=== PATIENT | male | born 1960 | race Caucasian/White ===

== ENCOUNTER 2017-08-05 08:31 | Emergency (ER) | payer BC ==
[2017-08-05] MEDS ORDERED: Ketorolac INJ* 30 MG/ML 1 ML VIAL IV PUSH ONE (09:16)
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
[2017-08-05 09:56] LABS: Hematocrit 42 % (42-52); Hemoglobin 14.2 g/dl (14.0-18.0); Mean Corpuscular HGB Conc 34 g/dl (31-36); Mean Corpuscular Hemoglobin 30 pg (27-31); Mean Corpuscular Volume 89 fL (80-94); Mean Platelet Volume 8 um3 (7.4-10.4); Red Blood Count 4.68 10^6/ul (4.0-5.4); Red Cell Distribution Width 13 % (10.5-15); White Blood Count 6.6 10^3/ul (3.5-10.8)
--- NOTE | 2017-08-05 09:57 | RAD ---
INDICATION: RIGHT greater than LEFT back pain radiating to the groin/testicle. Question renal stone and lumbar pathology. COMPARISON: September 12, 2014 CT. TECHNIQUE: Multidetector CT images were obtained from the lung bases to the ischial tuberosities. Evaluation of the viscera is limited without IV contrast. Multiplanar reformation. REPORT: Minimal subsegmental atelectasis at the medial basal segment of the RIGHT lower lobe due to thoracic spine osteophytes. The liver, gallbladder, pancreas, and spleen are unremarkable. Negative for CT abnormality of the upper GI, small bowel, medially extending appendix, or colon. Negative for ascites, or free air. Small fat-containing indirect RIGHT inguinal hernia is partially visualized extending outside the jxoqq-xj-ytbn caudally at the scrotum. At the caudal margin of the [id number]-vl-yygc the hernia measures up to 3.3 x 2.8 cm orthogonal diameter increased from 1.7 x 2.5 cm previously. No inflammatory change evident within the visualized portion of the hernia. No abnormality of the unenhanced kidneys, ureters, or moderately distended urinary bladder. Negative for urolithiasis or hydronephrosis. Phleboliths noted adjacent to the unremarkable distal ureters. Grossly symmetric seminal vesicles. Negative for lymphadenopathy. Normal diameter abdominal aorta and iliac arteries. Physiologic distention of the IVC. Negative for fracture. Chronic finding of approximate 2 cm osseous hemangioma at the L2 vertebral body. No suspicious focal osseous lesions evident. Multilevel mild degenerative spondylosis and facet joint osteoarthritis. No significant central canal stenosis evident at any level. At L3-L4 and L4-L5 degenerative spondylosis and facet joint osteoarthritis results in mild bilateral foraminal stenosis without gross change compared with the 2014 exam. IMPRESSION: 1. Small fat-containing indirect RIGHT inguinal hernia is partially visualized extending outside the afzne-tj-lpqk caudally at the scrotum. At the caudal margin of the zurbm-wn-dqea the hernia measures up to 3.3 x 2.8 cm orthogonal diameter increased from 1.7 x 2.5 cm previously. No inflammatory change evident within the visualized portion of the hernia. 2. Negative for urolithiasis or obstructive uropathy. 3. Mild lumbar sacral spine degenerative spondylosis and facet joint osteoarthritis with suggestion of unchanged mild bilateral foraminal stenosis at L3-L4 and L4-L5. MRI provides the most accurate assessment of degree of spinal stenosis.
[2017-08-05 10:12] LABS: Albumin 3.9 g/dL (3.2-5.2); BUN/Creatinine Ratio 15.6 (8-20); C Reactive Protein 6.89 mg/L (< 5.00); Calcium 9.3 mg/dL (8.6-10.3); EGFR African American 112.3 (>60); EGFR Non-African American 87.3 (>60); Globulin 2.9 g/dL (2-4); Potassium 3.9 mmol/L (3.5-5.0); Total Bilirubin 0.6 mg/dL (0.2-1.0); Total Protein 6.8 g/dL (6.4-8.9)
[2017-08-05 10:40] LABS: Urine Bilirubin Negative (Negative); Urine Glucose Negative (Negative); Urine Nitrite Negative (Negative)
[2017-08-05 12:19] VITALS: BP 178/102
== END 2017-08-05 12:19 | disposition home or self-care (01) ==
LOC: ED 08:31
DX: M46.96 Unspecified inflammatory spondylopathy, lumbar region (principal); M54.16 Radiculopathy, lumbar region; K40.90 Unilateral inguinal hernia, without obstruction or gangrene, not specified as recurrent; Z87.891 Personal history of nicotine dependence; I10 Essential (primary) hypertension
CPT/HCPCS: 36415; 74176; 80053; 81003; 83605; 83690; 85025; 86140; 96374; 99282; J1885

== ENCOUNTER 2017-09-10 17:13 | Emergency (ER) | payer BC ==
[2017-09-10] MEDS ORDERED: Albuterol/Ipratropium NEB.SOL* Albuterol 2.5 MG/Ipratropium 0.5 MG 3 ML INH ONE (17:28)
[2017-09-10] MEDS ORDERED: Albuterol/Ipratropium NEB.SOL* Albuterol 2.5 MG/Ipratropium 0.5 MG 3 ML ONE (17:29)
[2017-09-10 17:58] VITALS: BP 160/100
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
== END 2017-09-10 18:15 | disposition home or self-care (01) ==
LOC: UCEAST 17:13
DX: J40 Bronchitis, not specified as acute or chronic (principal); J98.01 Acute bronchospasm; I10 Essential (primary) hypertension; Z88.8 Allergy status to other drugs, medicaments and biological substances; Z91.018 Allergy to other foods; Z91.048 Other nonmedicinal substance allergy status; Z87.891 Personal history of nicotine dependence
CPT/HCPCS: 99212; A9270-GY; G0463

== ENCOUNTER 2018-06-12 12:26 | Emergency (ER) | payer BC ==
[2018-06-12 12:39] VITALS: BP 153/90
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
== END 2018-06-12 14:00 | disposition home or self-care (01) ==
LOC: UCEAST 12:26
DX: J02.0 Streptococcal pharyngitis (principal); E78.5 Hyperlipidemia, unspecified; I10 Essential (primary) hypertension; I48.91 Unspecified atrial fibrillation; Z79.01 Long term (current) use of anticoagulants; Z88.8 Allergy status to other drugs, medicaments and biological substances; Z87.891 Personal history of nicotine dependence
CPT/HCPCS: 87651; 99212; G0463

== ENCOUNTER 2018-10-14 16:58 | Emergency (ER) | payer BC ==
[2018-10-14 17:20] VITALS: BP 145/82
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
== END 2018-10-14 18:45 | disposition home or self-care (01) ==
LOC: UCEAST 16:58
DX: J40 Bronchitis, not specified as acute or chronic (principal); Z88.8 Allergy status to other drugs, medicaments and biological substances; Z87.891 Personal history of nicotine dependence
CPT/HCPCS: 99212; G0463

== ENCOUNTER 2019-02-14 06:21 | Emergency (ER) | payer BC ==
[2019-02-14] MEDS ORDERED: Ondansetron ODT TAB* 4 MG SL ONE (06:36)
[2019-02-14] MEDS ORDERED: NS 0.9% 1000 ML** 1,000 ML IV ONE (07:05)
[2019-02-14] MEDS ORDERED: Famotidine IV* 10 MG/ML 2 ML (20 mg) IV SLOW PU ONE (07:06)
[2019-02-14 07:07] LABS: ABS Basophils 0.1 10^3/ul (0-0.2); ABS Eosinophils 0.3 10^3/ul (0-0.6); ABS Lymphocytes 1.8 10^3/ul (1.0-4.8); ABS Monocytes 0.7 10^3/ul (0-0.8); Eosinophil % 2.2 %; Hematocrit 41 % (42-52); Hemoglobin 13.8 g/dL (14.0-18.0); Lymphocyte % 13.2 %; Mean Corpuscular HGB Conc 34 g/dL (31-36); Mean Corpuscular Hemoglobin 30 pg (27-31); Mean Corpuscular Volume 88 fL (80-94); Mean Platelet Volume 7.6 fL (7.4-10.4); Platelet Count 235 10^3/uL (150-450); Red Blood Count 4.64 10^6 /uL (4.18-5.48); Red Cell Distribution Width 13 % (10.5-15); White Blood Count 13.9 10^3/uL (3.5-10.8)
[2019-02-14 07:18] LABS: INR 0.95 (0.82-1.09)
[2019-02-14 07:19] LABS: Albumin 4.1 g/dL (3.2-5.2); Albumin/Globulin Ratio 1.5 (1-3); BUN/Creatinine Ratio 19.1 (8-20); Calcium 8.9 mg/dL (8.6-10.3); EGFR African American 106.2 (>60); EGFR Non-African American 87.8 (>60); Globulin 2.8 g/dL (2-4); Potassium 3.7 mmol/L (3.5-5.0); Total Bilirubin 0.3 mg/dL (0.2-1.0); Total Protein 6.9 g/dL (6.4-8.9)
[2019-02-14 07:20] LABS: Troponin I 0.01 ng/mL (<0.04)
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
[2019-02-14] MEDS ORDERED: Morphine 4 MG/ML VIAL (1 ml) 4 MG/ML VIAL IV ONE (09:11)
[2019-02-14 10:38] VITALS: BP 142/57
== END 2019-02-14 10:37 | disposition home or self-care (01) ==
LOC: ED 06:21
DX: R11.2 Nausea with vomiting, unspecified (principal); R19.7 Diarrhea, unspecified; R10.11 Right upper quadrant pain; R10.12 Left upper quadrant pain; R00.8 Other abnormalities of heart beat; I10 Essential (primary) hypertension; Z91.018 Allergy to other foods; Z88.8 Allergy status to other drugs, medicaments and biological substances; Z91.09 Other allergy status, other than to drugs and biological substances; Z87.891 Personal history of nicotine dependence
CPT/HCPCS: 36415; 80053; 83605; 83735; 84484; 85025; 85610; 93005; 96361; 96374; 96375; 99283; A9270-GY; J2270

== ENCOUNTER 2019-02-15 19:52 | Inpatient (IN) | payer BC ==
[2019-02-15 23:59] LABS: ABS Basophils 0.1 10^3/ul (0-0.2); ABS Eosinophils 0.1 10^3/ul (0-0.6); ABS Lymphocytes 0.4 10^3/ul (1.0-4.8); ABS Monocytes 0.7 10^3/ul (0-0.8); ABS Neutrophils 15.4 10^3/ul (1.5-7.7); Eosinophil % 0.5 %; Hematocrit 41 % (42-52); Hemoglobin 13.8 g/dL (14.0-18.0); Lymphocyte % 2.7 %; Mean Corpuscular HGB Conc 34 g/dL (31-36); Mean Corpuscular Hemoglobin 30 pg (27-31); Mean Corpuscular Volume 89 fL (80-94); Platelet Count 149 10^3/uL (150-450); Red Cell Distribution Width 14 % (10.5-15); White Blood Count 16.6 10^3/uL (3.5-10.8)
[2019-02-16 00:15] LABS: Albumin 3.8 g/dL (3.2-5.2); Albumin/Globulin Ratio 1.3 (1-3); Calcium 9.2 mg/dL (8.6-10.3); EGFR African American 32.7 (>60); Potassium 3.8 mmol/L (3.5-5.0); Total Protein 6.8 g/dL (6.4-8.9)
[2019-02-16] MEDS ORDERED: Ondansetron INJ* 2 MG/ML VIAL IV ONE (00:27)
[2019-02-16] MEDS ORDERED: Morphine 4 MG/ML VIAL (1 ml) 4 MG/ML VIAL IV ONE (00:27)
[2019-02-16] MEDS ORDERED: NS 0.9% 1000 ML** 1,000 ML IV ONE ×2 (00:27→01:36)
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
[2019-02-16] MEDS ORDERED: oxyCODONE TAB* 5 MG TAB PO ONE (03:58)
[2019-02-16] MEDS ORDERED: Piperacillin/Tazobac ADVAN(*) 3.375 GM in NS 0.9% 100 ML* 100 ML IVPB ONE (04:11)
[2019-02-16] MEDS ORDERED: NS 0.9% 1000 ML** 3,000 ML IV ONE (04:30)
[2019-02-16 05:14] LABS: Activated Partial Thrombo Time 36.9 seconds (26.0-38.0); INR 1.46 (0.82-1.09)
[2019-02-16 05:42] LABS: BUN/Creatinine Ratio 14.2 (8-20); Calcium 8.4 mg/dL (8.6-10.3); EGFR African American 32.7 (>60); Magnesium 1.8 mg/dL (1.9-2.7); Potassium 3.6 mmol/L (3.5-5.0)
[2019-02-16] MEDS ORDERED: NS 0.9% 1000 ML** 1,000 ML IV SCH (06:30)
[2019-02-16] MEDS ORDERED: Ondansetron INJ* 2 MG/ML VIAL IV PRN (06:50)
--- NOTE | 2019-02-16 07:52 | ED ---
Progress - Progress Note Progress Note: The patient is a sign-out from JACKLYN Li, to Dr. Payam Zepeda MD, at shift change at [address] Abd/Pel impression: Acute appendicitis, possible perforation. Inflammatory changes in the right lower quadrant. Dilated appendix which has air in the lumen. A small amount of free air is seen next to the appendix. Associated inflammatory changes. I spoke with Dr. Kincaid at 0430 concerning surgical consult for the patient. I spoke with Dr. Arias at 0445 ; she accepts the patient for admission at this time. He is diagnosed with appendicitis, and he agrees to admission at this time. - Results/Orders Results/Orders: CT Abd/Pel: Acute appendicitis, possible perforation. Inflammatory changes in the right lower quadrant. Dilated appendix which has air in the lumen. A small amount of free air is seen next to the appendix. Associated inflammatory changes. ED physician has reviewed this radiology report. Re-Evaluation - Re-Evaluation First Eval Re-Evaluation Time: 04:45 Comment: I spoke with the patient concerning CT results and need for admission for surgery. Course/Dx - Diagnoses Provider Diagnoses: Acute appendicitis Discharge - Sign-Out/Discharge Documenting (check all that apply): Patient Departure - Patient is accepted for admission., Receiving Sign-Out Receiving patient FROM: Matt Cortes - Patient is a sign-out from Matt Cortes pending CT results. Patient Received Moderate/Deep Sedation with Procedure: No - Discharge Plan Condition: Stable Disposition: ADMITTED TO [facility] - Billing Disposition and Condition Condition: STABLE Disposition: Admitted to [facility] - Attestation Statements Document Initiated by Lucero: Yes Documenting Scribe: Billie Zheng Provider For Whom Lucero is Documenting (Include Credential): Dr. Payam Zepeda MD Scribe Attestation: Billie Castro, scribed for Dr. Payam Zepeda MD on 02/17/19 at 0456. Scribe Documentation Reviewed: Yes Provider Attestation: The documentation as recorded by the Billie shepherd accurately reflects the service I personally performed and the decisions made by me, Dr. Payam Zepeda MD Status of Scribe Document: Viewed
--- NOTE | 2019-02-16 08:40 | CONS ---
CC: Lm Lees MD CONSULTATION REPORT: DATE OF CONSULT: 02/16/19 TIME OF EVALUATION: 0500 REQUESTING PHYSICIAN FOR CONSULTATION: Joshua Kincaid MD REASON FOR EVALUATION: Management of comorbidities and new onset of acute kidney injury. HISTORY OF PRESENT ILLNESS: This is a 58-year-old male with past medical history of atrial fibrillation, on anticoagulation, hypertension, hyperlipidemia , who presented to the emergency room for the second time in 2 days with worsening abdominal pain. The patient states his abdominal pain started in the epigastric region in the house calls nurse of 02/13/19. He began having nausea, vomiting, diarrhea. He came in to the emergency room on 02/14/19. They did labs and diagnosed him with gastroenteritis and sent him home with Zofran. That evening, on the 02/14/19, he developed a fever, continued to have nausea, vomiting, diarrhea, and his abdominal pain got worse and became more localized in the right lower quadrant. He has had a decrease in appetite and intake. He did start taking ibuprofen 800 mg every 4 hours while awake. He last took his Eliquis dose of 10 mg at 10 a.m. on 02/15/19 as he was worried that he would not be compliant taking it twice a day and his primary told him it was okay to take both tabs in the morning. The patient denies any urinary symptoms. No urinary retention. No frequency. No chest pain. No shortness of breath. No cardiac history. Able to ambulate the stairs without any issues, otherwise review of systems is negative. In the emergency room, the patient had labs and imaging. Dr. Kincaid was contacted for patient's findings on CAT scan for acute appendicitis. He was also noted to have acute kidney injury and we were requested to evaluate patient for his acute kidney injury and management of comorbidities. In the emergency room, the patient has received 4 mg of Zofran, 4 mg of morphine, oxycodone 10 mg, started on Zosyn. He has received 2 L of normal saline and he has gotten additional 3 more L of normal saline. PAST MEDICAL HISTORY: 1. Hypertension. 2. Atrial fibrillation, on anticoagulation. 3. Hyperlipidemia. 4. History of obstructive sleep apnea, intolerant of CPAP. MEDICATIONS: 1. Eliquis 10 mg p.o. daily. Last took on 02/15/19 at 10 a.m. 2. Metoprolol 25 mg p.o. daily in the morning. 3. Lisinopril patient states he takes 12.5 mg p.o. daily. 4. Atorvastatin 20 mg daily. ALLERGIES: PREDNISONE, BLACK OLIVES, OIL GREASE. FAMILY HISTORY: Mother at age 84 from bladder cancer. Father from an HI at age 73. SOCIAL HISTORY: The patient lives at home with his who is his healthcare proxy. He quit smoking in 1981, smoked 2 packs per day for 7 years. Occasional alcohol use and no illicit drug use. Code status: Full code. REVIEW OF SYSTEMS: A 14-point review of systems as mentioned in the HPI, otherwise negative. PHYSICAL EXAM: Vitals: T-max is 100, pulse rate 76, respiratory rate 18, oxygen saturation is 97% on room air, blood pressure is 102/51. General: In no acute distress. Resting comfortably with his at the bedside. HEENT: Head normocephalic. Pupils equal and reactive, anicteric. Oropharynx: Mucous membranes moist. Neck: Supple. No lymphadenopathy. Cardiac: Sinus rhythm with ectopic beats. A soft systolic murmur heard throughout. Respiratory: Diminished breath sounds. No wheezing, rhonchi, or rales. Abdomen: Morbidly obese, hypoactive bowel sounds. Soft, tenderness in the right lower quadrant with guarding. Extremities: No clubbing, cyanosis, or edema. +1 DPs. Neurologic: Alert and oriented x3. No gross focal neurologic deficits. DIAGNOSTIC STUDIES/LAB DATA: White count 16.6, hemoglobin 13.8, hematocrit 41, platelets 149. Sodium 129, potassium 3.8, chloride 97, bicarb 21. BUN 13, creatinine 2.74. RADIOGRAPHIC DATA: Acute appendicitis, possible perforation, inflammatory changes in the right lower quadrant, dilated appendix a lumen of small amount of free air is seen next to appendix. ASSESSMENT AND PLAN: This is a 58-year-old male with past medical history of atrial fibrillation, on anticoagulation, who presents to the emergency room for the second time with worsening, nausea, vomiting, diarrhea, right lower quadrant pain, and fever, found to have acute appendicitis with possible perforation. 1. Acute appendicitis, possible perforation. The patient is being admitted by Dr. Kincaid, management per Dr. Kincaid and Surgery Service. 2. Acute kidney injury Assessment Suspect this is multifactorial, most likely prerenal azotemia in the setting of decreased p.o. over the past several days. He has also been taking ibuprofen and he is also on lisinopril. Plan: We will check a bladder scan and make sure this is not related to any postobstructive renal disease and hold his lisinopril and ibuprofen. Continue with aggressive fluid resuscitation. Check urinalysis and we will repeat his labs now as he has already received 2 L. If no significant improvement, we will recommend kidney and bladder ultrasound. Atrial Fibrillation Assessment: on Eliquis. The patient appears to be rate controlled. We will get a baseline EKG for preop protocol. If the surgery is considered high bleeding risk, the patient should hold his Eliquis for 3 days prior to procedure. However, his creatinine clearance is now 30 and his metabolism of Eliquis is now even longer and may require a longer duration prior to proceeding with surgery if his renal function does not improve. Will continue to hold Eliquis. 4. Hypertension. Continue him on metoprolol. As mentioned, hold his lisinopril. 5. Hyperlipidemia. Continue his atorvastatin. 6. FEN. Per Surgery. 7. DVT prophylaxis. Per Surgery. Thank you for this consultation. We will follow along with you. PATIENT TIME: Greater than 40 minutes spent doing the history and physical, more than half the time spent in direct patient contact. [id number]/[facility] #: [id number] PRISCILLA
[2019-02-16] MEDS: NS 0.9% 1000 ML** 1,000 ML IV SCH ×2 (08:53→17:28)
[2019-02-16] MEDS: Piperacillin/Tazobac ADVAN(*) 3.375 GM in NS 0.9% 100 ML* 100 ML IVPB SCH ×2 (08:54→17:25)
[2019-02-16] MEDS: Metoprolol Succinate XL TAB* 25 MG PO SCH (08:54)
[2019-02-16] MEDS: Morphine 4 MG/ML VIAL (1 ml) 4 MG/ML VIAL IV PRN ×4 (08:56→22:05)
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
--- NOTE | 2019-02-16 10:10 | PN ---
Progress Note - Progress Note Date of Service: 02/16/19 SOAP: Subjective: Reports pain is the same. Some effect from morphine. No flatus/N/V. Objective: Vital Signs Temp 96.1 F 02/16/19 08:00 Pulse 87 02/16/19 08:00 Resp 18 02/16/19 08:56 BP 122/73 02/16/19 08:00 Pulse Ox 99 02/16/19 08:00 Gen: obese male; NAD Abd: scars infraumbilical; soft; localized tenderness to percussion RLQ. Intake & Output 02/15/19 02/16/19 02/16/19 18:59 06:59 18:59 Intake Total 2100 Balance 2100 Weight 300 lb Intake: IV Fluids 1999 IVPB 100 Laboratory Results - last 24 hr 02/15/19 02/15/19 02/16/19 23:50 23:50 04:31 WBC 16.6 H RBC 4.60 Hgb 13.8 L Hct 41 L MCV 89 MCH 30 MCHC 34 RDW 14 Plt Count 149 L MPV 8.0 Neut % (Auto) 92.3 Lymph % (Auto) 2.7 [place] % (Auto) 4.0 Eos % (Auto) 0.5 Baso % (Auto) 0.5 Absolute Neuts (auto) 15.4 H Absolute Lymphs (auto) 0.4 L Absolute Monos (auto) 0.7 Absolute Eos (auto) 0.1 Absolute Basos (auto) 0.1 Absolute Nucleated RBC 0.0 Nucleated RBC % 0.0 INR (Anticoag Therapy) 1.46 H APTT 36.9 Sodium 129 L Potassium 3.8 Chloride 97 L Carbon Dioxide 21 L Anion Gap 11 BUN 32 H Creatinine 2.47 H Est GFR ( Amer) 32.7 Est GFR (Non-Af Amer) 27.0 BUN/Creatinine Ratio 13.0 Glucose 93 Lactic Acid Calcium 9.2 Magnesium Total Bilirubin 1.00 AST 23 ALT 15 Alkaline Phosphatase 59 Total Protein 6.8 Albumin 3.8 Globulin 3.0 Albumin/Globulin Ratio 1.3 02/16/19 02/16/19 04:37 04:37 WBC RBC Hgb Hct MCV MCH MCHC RDW Plt Count MPV Neut % (Auto) Lymph % (Auto) [place] % (Auto) Eos % (Auto) Baso % (Auto) Absolute Neuts (auto) Absolute Lymphs (auto) Absolute Monos (auto) Absolute Eos (auto) Absolute Basos (auto) Absolute Nucleated RBC Nucleated RBC % INR (Anticoag Therapy) APTT Sodium 130 L Potassium 3.6 Chloride 99 L Carbon Dioxide 22 Anion Gap 9 BUN 35 H Creatinine 2.47 H Est GFR ( Amer) 32.7 Est GFR (Non-Af Amer) 27.0 BUN/Creatinine Ratio 14.2 Glucose 91 Lactic Acid 1.1 Calcium 8.4 L Magnesium 1.8 L Total Bilirubin AST ALT Alkaline Phosphatase Total Protein Albumin Globulin Albumin/Globulin Ratio Assessment: Perforated appendicitis in pt on anticoagulation with ARF and severe obesity. He does not appear septic and, given risk of emergent surgery, non operative management seems most reasonable at present. Plan: -Serial exams. -IV abx. -Keep NPO. -IV hydration. -Cont to hold Eliquis. -assuming he improves, will consider repeat imaging and drainage of abscess as appropriate. -If he fails to improve or worsens, then surgery will be necessary. -d/w patient and .
--- NOTE | 2019-02-16 11:00 | PN ---
Subjective Date of Service: 02/16/19 Interval History: Brief update as patient admitted earlier this morning. Abd pain is overall unchanged, nausea improved. Denies vomiting, fever/chills, chest pain, difficulty breathing, difficulty passing urine, low back pain. Objective Active Medications: Acetaminophen (Tylenol Tab*) 650 mg PO Q6H PRN PRN Reason: FEVER Atorvastatin Calcium (Lipitor*) 20 mg PO 2100 [facility] Sodium Chloride (Ns 0.9% 1000 Ml) 1,000 mls @ 175 mls/hr IV PER RATE [facility] Last Admin: 02/16/19 08:53 Dose: 175 mls/hr Piperacillin Sod/Tazobactam (Sod 3.375 gm/ Sodium Chloride) 100 mls @ 25 mls/ hr IVPB Q8H [facility] Last Admin: 02/16/19 08:54 Dose: 25 mls/hr Metoprolol Succinate (Toprol Xl Tab*) 25 mg PO DAILY [facility] Last Admin: 02/16/19 08:54 Dose: 25 mg Morphine Sulfate (Morphine 4 Mg/Ml Vial (1 Ml)) 4 mg IV Q2H PRN PRN Reason: PAIN Last Admin: 02/16/19 08:56 Dose: 4 mg Ondansetron HCl (Zofran Inj*) 4 mg IV Q6H PRN PRN Reason: NAUSEA Vital Signs - 8 hr 02/16/19 02/16/19 02/16/19 04:21 07:01 07:51 Temperature 100 F 100.4 F 98.9 F Pulse Rate 76 83 87 Respiratory 18 18 18 Rate Blood Pressure 102/51 106/57 122/73 (mmHg) O2 Sat by Pulse 97 95 96 Oximetry 02/16/19 02/16/19 08:00 08:56 Temperature 96.1 F Pulse Rate 87 Respiratory 18 18 Rate Blood Pressure 122/73 (mmHg) O2 Sat by Pulse 99 Oximetry Oxygen Devices in Use Now: None Result Diagrams: 02/15/19 23:50 02/16/19 04:37 Additional Lab and Data: Lab Results 02/15/19 02/15/19 Range/Units 23:50 23:50 WBC 16.6 H (3.5-10.8) 10^3/uL RBC 4.60 (4.18-5.48) 10^6 /uL Hgb 13.8 L (14.0-18.0) g/dL Hct 41 L (42-52) % MCV 89 (80-94) fL MCH 30 (27-31) pg MCHC 34 (31-36) g/dL RDW 14 (10.5-15) % Plt Count 149 L (150-450) 10^3/uL MPV 8.0 (7.4-10.4) fL Neut % (Auto) 92.3 % Lymph % (Auto) 2.7 % [place] % (Auto) 4.0 % Eos % (Auto) 0.5 % Baso % (Auto) 0.5 % Absolute Neuts (auto) 15.4 H (1.5-7.7) 10^3/ul Absolute Lymphs (auto) 0.4 L (1.0-4.8) 10^3/ul Absolute Monos (auto) 0.7 (0-0.8) 10^3/ul Absolute Eos (auto) 0.1 (0-0.6) 10^3/ul Absolute Basos (auto) 0.1 (0-0.2) 10^3/ul Absolute Nucleated RBC 0.0 10^3/ul Nucleated RBC % 0.0 Sodium 129 L (135-145) mmol/L Potassium 3.8 (3.5-5.0) mmol/L Chloride 97 L (101-111) mmol/L Carbon Dioxide 21 L (22-32) mmol/L Anion Gap 11 (2-11) mmol/L BUN 32 H (6-24) mg/dL Creatinine 2.47 H (0.67-1.17) mg/dL Est GFR ( Amer) 32.7 (>60) Est GFR (Non-Af Amer) 27.0 (>60) BUN/Creatinine Ratio 13.0 (8-20) Glucose 93 (70-100) mg/dL Calcium 9.2 (8.6-10.3) mg/dL Total Bilirubin 1.00 (0.2-1.0) mg/dL AST 23 (13-39) U/L ALT 15 (7-52) U/L Alkaline Phosphatase 59 (34-104) U/L Total Protein 6.8 (6.4-8.9) g/dL Albumin 3.8 (3.2-5.2) g/dL Globulin 3.0 (2-4) g/dL Albumin/Globulin Ratio 1.3 (1-3) Assess/Plan/Problems-Billing Assessment:
[2019-02-16] MEDS: Acetaminophen TAB* 325 MG PO PRN (12:42)
[2019-02-16 14:26] LABS: BUN/Creatinine Ratio 15.4 (8-20); EGFR African American 44.8 (>60)
[2019-02-16 15:08] LABS: Potassium 3.7 mmol/L (3.5-5.0)
--- NOTE | 2019-02-16 17:10 | PN ---
Hospitalist Progress Note Date of Service: 02/16/19 Brief update as patient admitted earlier this morning. Abd pain is overall unchanged, nausea improved. Denies vomiting, fever/chills, chest pain, difficulty breathing, difficulty passing urine, low back pain. U/S kidney and bladder without hydronephrosis and no urinary retention. SANJAY is possibly related to ibuprofen use and possibly prerenal in setting of decreased po intake d/t nausea. Need to continue to hold eliquis in case surgery is required. Continue to monitor for worsening of symptoms. Continue zosyn. Continue prn zofran and prn morphine for sxs control. Patient has been overall normotensive. Continue home meds for HTN.
[2019-02-16] MEDS: Atorvastatin* 20 MG TAB PO SCH (22:02)
[2019-02-17] MEDS: Piperacillin/Tazobac ADVAN(*) 3.375 GM in NS 0.9% 100 ML* 100 ML IVPB SCH ×3 (01:09→16:25)
[2019-02-17] MEDS: NS 0.9% 1000 ML** 1,000 ML IV SCH ×4 (01:59→22:30)
[2019-02-17] MEDS: Acetaminophen TAB* 325 MG PO PRN (05:43)
[2019-02-17 08:17] LABS: ABS Eosinophils 0.1 10^3/ul (0-0.6); ABS Lymphocytes 0.5 10^3/ul (1.0-4.8); ABS Monocytes 0.6 10^3/ul (0-0.8); ABS Neutrophils 8.7 10^3/ul (1.5-7.7); Eosinophil % 1.4 %; Hematocrit 36 % (42-52); Hemoglobin 12.1 g/dL (14.0-18.0); Lymphocyte % 5.4 %; Mean Corpuscular HGB Conc 33 g/dL (31-36); Mean Corpuscular Hemoglobin 30 pg (27-31); Mean Corpuscular Volume 91 fL (80-94); Mean Platelet Volume 8.6 fL (7.4-10.4); Platelet Count 131 10^3/uL (150-450); Red Blood Count 4.02 10^6 /uL (4.18-5.48); Red Cell Distribution Width 14 % (10.5-15)
[2019-02-17] MEDS: Morphine 4 MG/ML VIAL (1 ml) 4 MG/ML VIAL IV PRN ×4 (08:20→20:53)
[2019-02-17] MEDS: Metoprolol Succinate XL TAB* 25 MG PO SCH (08:22)
[2019-02-17 08:36] LABS: BUN/Creatinine Ratio 17.9 (8-20); Calcium 8.3 mg/dL (8.6-10.3); EGFR African American 55.6 (>60); EGFR Non-African American 45.9 (>60); Magnesium 2.1 mg/dL (1.9-2.7); Phosphorus 2.9 mg/dL (2.5-5.0); Potassium 3.3 mmol/L (3.5-5.0)
--- NOTE | 2019-02-17 09:50 | PN ---
Progress Note - Progress Note Date of Service: 02/17/19 SOAP: Subjective: Feels a little better but still having some RLQ abd pain Passing flatus and had one small BM yesterday-still loose Hungry and would also like to shower No other complaints Objective: Temp Pulse Resp BP Pulse Ox 98.9 F 73 18 125/57 99 02/17/19 07:42 02/17/19 07:42 02/17/19 08:20 02/17/19 07:42 02/17/19 07:42 Intake & Output 02/15/19 02/16/19 02/17/19 02/18/19 06:59 06:59 06:59 06:59 Intake Total 2100 1100 1100 Output Total 1850 Balance 2100 -750 1100 Weight 300 lb 300 lb Intake: IV Fluids 2000 1100 1100 NS 990 990 Zosyn 110 110 IVPB 100 Oral 0 Output: Urine 1850 Other: Estimated Void Medium Date of Last Bowel 02/17/19 Movement # Bowel Movements 0 Estimated Stool Amount Medium # Voids 1 PEX: Comfortable Lungs are clear Abd is soft and non-distended. Bowel sounds are present and are hyperactive. Localized tenderness RLQ without peritoneal irritation or generalized pain. Ext without edema Laboratory Last Values WBC 10.0 10^3/uL (3.5-10.8) 02/17/19 05:50 RBC 4.02 10^6 /uL (4.18-5.48) L 02/17/19 05:50 Hgb 12.1 g/dL (14.0-18.0) L 02/17/19 05:50 Hct 36 % (42-52) L 02/17/19 05:50 MCV 91 fL (80-94) 02/17/19 05:50 MCH 30 pg (27-31) 02/17/19 05:50 MCHC 33 g/dL (31-36) 02/17/19 05:50 RDW 14 % (10.5-15) 02/17/19 05:50 Plt Count 131 10^3/uL (150-450) L 02/17/19 05:50 MPV 8.6 fL (7.4-10.4) 02/17/19 05:50 Neut % (Auto) 86.9 % 02/17/19 05:50 Lymph % (Auto) 5.4 % 02/17/19 05:50 [place] % (Auto) 6.0 % 02/17/19 05:50 Eos % (Auto) 1.4 % 02/17/19 05:50 Baso % (Auto) 0.3 % 02/17/19 05:50 Absolute Neuts (auto) 8.7 10^3/ul (1.5-7.7) H 02/17/19 05:50 Absolute Lymphs (auto) 0.5 10^3/ul (1.0-4.8) L 02/17/19 05:50 Absolute Monos (auto) 0.6 10^3/ul (0-0.8) 02/17/19 05:50 Absolute Eos (auto) 0.1 10^3/ul (0-0.6) 02/17/19 05:50 Absolute Basos (auto) 0.0 10^3/ul (0-0.2) 02/17/19 05:50 Absolute Nucleated RBC 0.0 10^3/ul 02/17/19 05:50 Nucleated RBC % 0.0 02/17/19 05:50 INR (Anticoag Therapy) 1.46 (0.82-1.09) H 02/16/19 04:31 APTT 36.9 seconds (26.0-38.0) 02/16/19 04:31 Sodium 135 mmol/L (135-145) 02/17/19 05:50 Potassium 3.3 mmol/L (3.5-5.0) L 02/17/19 05:50 Chloride 104 mmol/L (101-111) 02/17/19 05:50 Carbon Dioxide 20 mmol/L (22-32) L 02/17/19 05:50 Anion Gap 11 mmol/L (2-11) 02/17/19 05:50 BUN 28 mg/dL (6-24) H 02/17/19 05:50 Creatinine 1.56 mg/dL (0.67-1.17) H 02/17/19 05:50 Est GFR ( Amer) 55.6 (>60) 02/17/19 05:50 Est GFR (Non-Af Amer) 45.9 (>60) 02/17/19 05:50 BUN/Creatinine Ratio 17.9 (8-20) 02/17/19 05:50 Glucose 68 mg/dL (70-100) L 02/17/19 05:50 Lactic Acid 1.1 mmol/L (0.5-2.0) 02/16/19 04:37 Calcium 8.3 mg/dL (8.6-10.3) L 02/17/19 05:50 Phosphorus 2.9 mg/dL (2.5-5.0) 02/17/19 05:50 Magnesium 2.1 mg/dL (1.9-2.7) 02/17/19 05:50 Total Bilirubin 1.00 mg/dL (0.2-1.0) 02/15/19 23:50 AST 23 U/L (13-39) 02/15/19 23:50 ALT 15 U/L (7-52) 02/15/19 23:50 Alkaline Phosphatase 59 U/L (34-104) 02/15/19 23:50 Total Protein 6.8 g/dL (6.4-8.9) 02/15/19 23:50 Albumin 3.8 g/dL (3.2-5.2) 02/15/19 23:50 Globulin 3.0 g/dL (2-4) 02/15/19 23:50 Albumin/Globulin Ratio 1.3 (1-3) 02/15/19 23:50 Assessment: Acute appendicitis-normal WBC, no fever and had BM Afib-on Elliquis, now been stopped for 48 hours ARF-improving with hydration Plan: Overall he is improving on IV abx and has no sign of sepsis or peritonitis. Renal function is improving and he has appetite. At this point almost 4 days into process we will continue with non-operative management, hold on any anti- coagulation, and follow. If he worsens or WBC elevates will plan repeat CT scan to rule out abscess and proceed with appropriate management. I would like to hold off on surgery this far into the progression of his appendicitis. I discussed this in detail with patient and his at the bedside this morning and they are aware of our plan. I answered their questions. Will repeat labs in AM and start on sips of clear liquids.
[2019-02-17] MEDS: KCL 20 MEQ/100 ML IVPREMIX* 20 MEQ/100 ML BAG IV SCH ×3 (10:48→15:37)
[2019-02-17 15:33] LABS: Activated Partial Thrombo Time 33.2 seconds (26.0-38.0); INR 1.16 (0.82-1.09)
[2019-02-17] MEDS: Heparin VIAL(*) 5000 UNITS/ML VIAL (FIVE THOUSAND) SUBCUT SCH ×2 (15:35→20:55)
[2019-02-17 15:36] LABS: BUN/Creatinine Ratio 15.6 (8-20); Calcium 8.5 mg/dL (8.6-10.3); EGFR African American 56.4 (>60); EGFR Non-African American 46.6 (>60); Potassium 3.7 mmol/L (3.5-5.0)
--- NOTE | 2019-02-17 15:41 | PN ---
Subjective Date of Service: 02/17/19 Interval History: Patient's nausea is resolved. His abdominal pain continues. Pain is more tolerable after prn pain meds but otherwise is unchanged from admission. Patient denies fever/chills, chest pain, difficulty breathing. Had nonbloody diarrhea this morning. Chronic wound to right medial ankle noted. He states it weeps almost daily. Does not follow with wound clinic. Objective Active Medications: Acetaminophen (Tylenol Tab*) 650 mg PO Q6H PRN PRN Reason: FEVER Last Admin: 02/17/19 05:43 Dose: 650 mg Atorvastatin Calcium (Lipitor*) 20 mg PO 2100 [facility] Last Admin: 02/16/19 22:02 Dose: 20 mg Heparin Sodium (Porcine) (Heparin Vial(*)) 5,000 units SUBCUT Q8HR [facility] Sodium Chloride (Ns 0.9% 1000 Ml) 1,000 mls @ 175 mls/hr IV PER RATE [facility] Last Admin: 02/17/19 08:17 Dose: 175 mls/hr Piperacillin Sod/Tazobactam (Sod 3.375 gm/ Sodium Chloride) 100 mls @ 25 mls/ hr IVPB Q8H [facility] Last Admin: 02/17/19 08:18 Dose: 25 mls/hr Potassium Chloride (Potassium Chloride 20 Meq/100 Ml Ivpremix*) 20 meq in 100 mls @ 50 mls/hr IV Q2H [facility] Stop: 02/17/19 15:59 Last Admin: 02/17/19 12:53 Dose: 50 mls/hr Metoprolol Succinate (Toprol Xl Tab*) 25 mg PO DAILY [facility] Last Admin: 02/17/19 08:22 Dose: 25 mg Morphine Sulfate (Morphine 4 Mg/Ml Vial (1 Ml)) 4 mg IV Q2H PRN PRN Reason: PAIN Last Admin: 02/17/19 12:48 Dose: 4 mg Ondansetron HCl (Zofran Inj*) 4 mg IV Q6H PRN PRN Reason: NAUSEA Vital Signs - 8 hr 02/17/19 02/17/19 02/17/19 07:42 08:00 08:20 Temperature 98.9 F Pulse Rate 73 Respiratory 17 20 18 Rate Blood Pressure 125/57 (mmHg) O2 Sat by Pulse 99 Oximetry 02/17/19 02/17/19 02/17/19 10:00 10:02 11:24 Temperature 98.4 F Pulse Rate 68 Respiratory 18 18 16 Rate Blood Pressure 130/62 (mmHg) O2 Sat by Pulse 95 98 Oximetry 02/17/19 02/17/19 02/17/19 12:00 12:48 12:54 Temperature Pulse Rate Respiratory 20 18 22 Rate Blood Pressure (mmHg) O2 Sat by Pulse 98 94 Oximetry 02/17/19 14:30 Temperature Pulse Rate Respiratory 21 Rate Blood Pressure (mmHg) O2 Sat by Pulse Oximetry Oxygen Devices in Use Now: None Appearance: Obese white male, appears younger than stated age, laying upright in hospital bed appearing in NAD, at bedside Eyes: No Scleral Icterus, PERRLA Ears/Nose/Mouth/Throat: Mucous Membranes Moist Neck: NL Appearance and Movements; NL JVP Respiratory: Symmetrical Chest Expansion and Respiratory Effort, Clear to Auscultation Cardiovascular: NL Sounds; No Murmurs; No JVD, RRR Abdominal: No Hepatosplenomegaly, - - abdomen tender to RLQ and RUQ, no rebound tenderness; normoactive BS x 4 quadrants; neg psoas sign Extremities: No Edema, No Clubbing, Cyanosis, - - chronic darkened pigmentation to regions of medial malleoli bilaterally; small volume of fluid at right medial ankle Neurological: Alert and Oriented x 3, NL Muscle Strength and Tone Result Diagrams: 02/17/19 05:50 02/17/19 15:11 Additional Lab and Data: Lab Results 02/15/19 02/15/19 Range/Units 23:50 23:50 WBC 16.6 H (3.5-10.8) 10^3/uL RBC 4.60 (4.18-5.48) 10^6 /uL Hgb 13.8 L (14.0-18.0) g/dL Hct 41 L (42-52) % MCV 89 (80-94) fL MCH 30 (27-31) pg MCHC 34 (31-36) g/dL RDW 14 (10.5-15) % Plt Count 149 L (150-450) 10^3/uL MPV 8.0 (7.4-10.4) fL Neut % (Auto) 92.3 % Lymph % (Auto) 2.7 % [place]ike % (Auto) 4.0 % Eos % (Auto) 0.5 % Baso % (Auto) 0.5 % Absolute Neuts (auto) 15.4 H (1.5-7.7) 10^3/ul Absolute Lymphs (auto) 0.4 L (1.0-4.8) 10^3/ul Absolute Monos (auto) 0.7 (0-0.8) 10^3/ul Absolute Eos (auto) 0.1 (0-0.6) 10^3/ul Absolute Basos (auto) 0.1 (0-0.2) 10^3/ul Absolute Nucleated RBC 0.0 10^3/ul Nucleated RBC % 0.0 Sodium 129 L (135-145) mmol/L Potassium 3.8 (3.5-5.0) mmol/L Chloride 97 L (101-111) mmol/L Carbon Dioxide 21 L (22-32) mmol/L Anion Gap 11 (2-11) mmol/L BUN 32 H (6-24) mg/dL Creatinine 2.47 H (0.67-1.17) mg/dL Est GFR ( Amer) 32.7 (>60) Est GFR (Non-Af Amer) 27.0 (>60) BUN/Creatinine Ratio 13.0 (8-20) Glucose 93 (70-100) mg/dL Calcium 9.2 (8.6-10.3) mg/dL Total Bilirubin 1.00 (0.2-1.0) mg/dL AST 23 (13-39) U/L ALT 15 (7-52) U/L Alkaline Phosphatase 59 (34-104) U/L Total Protein 6.8 (6.4-8.9) g/dL Albumin 3.8 (3.2-5.2) g/dL Globulin 3.0 (2-4) g/dL Albumin/Globulin Ratio 1.3 (1-3) Assess/Plan/Problems-Billing Assessment: 58 yo white male with PMHx afib (on AC), HTN, HLD, MARZENA (not tolerant to CPAP) presented with chills and abd pain, found to have appendicitis with possible perforation. Hospital medicine consulted for comanagement of chronic medical conditions. - Patient Problems (1) Appendicitis Code(s): K37 - UNSPECIFIED APPENDICITIS SNOMED Code(s): 68693026 Comment: -management per general surgery, currently utilizing medical management; on zosyn -holding eliquis in anticipation of possible surgery, last dose was 02/15/19 in AM -nausea/vomiting resolved, fever resolved, leukocytosis resolved; abdomen pain unchanged from yesterday - continued RLQ pain; no peritoneal signs -continue prn morphine and tylenol -sips of clear liquids per gen surg (2) SANJAY (acute kidney injury) Code(s): N17.9 - ACUTE KIDNEY FAILURE, UNSPECIFIED SNOMED Code(s): 34877876 Comment: -Cr 2.47 at admission, likely prerenal in setting of vomiting and decreased po intake -postrenal unlikely as kidney/bladder US normal -improvement, Cr today 1.56 -continue NS (3) Atrial fibrillation Code(s): I48.91 - UNSPECIFIED ATRIAL FIBRILLATION SNOMED Code(s): 61006046 Comment: -on eliquis at home, currently held for possible surgery -rate controlled, continue metoprolol -given acute illness and possibility of surgery, will not give lovenox bridge (4) Hypertension Code(s): I10 - ESSENTIAL (PRIMARY) HYPERTENSION SNOMED Code(s): 98282016 Comment: -normotensive -continue metoprolol -holding lisinopril/hctz (5) Hypokalemia Code(s): E87.6 - HYPOKALEMIA SNOMED Code(s): 96545271 Comment: -likely due to decreased po intake -replacing with IV KCl, will recheck BMP (6) Chronic wound of extremity Code(s): ETT2574 - SNOMED Code(s): 477334538 Comment: -longstanding chronic wounds to right ankle with bilateral ankle pigmentation changes -pt likely has longstanding peripheral vascular disease due to multiple orthopedic surgeries -would benefit from wound clinic follow up at discharge (7) MARZENA (obstructive sleep apnea) Code(s): G47.33 - OBSTRUCTIVE SLEEP APNEA (ADULT) (PEDIATRIC) SNOMED Code(s): 51270857 Comment: -pt previously CPAP intolerant -discussed importance of CPAP and risk factors of untreated MARZENA -continue overnight O2 and continues pulse ox overnight only (8) DVT prophylaxis Code(s): Z29.9 - ENCOUNTER FOR PROPHYLACTIC MEASURES, UNSPECIFIED SNOMED Code( s): 775956445 Comment: -SCDs -heparin TID (9) Full code status Code(s): Z78.9 - OTHER SPECIFIED HEALTH STATUS SNOMED Code(s): 657377991 Status and Disposition: per gen surg
[2019-02-17] MEDS: Atorvastatin* 20 MG TAB PO SCH (20:56)
[2019-02-18] MEDS: Piperacillin/Tazobac ADVAN(*) 3.375 GM in NS 0.9% 100 ML* 100 ML IVPB SCH ×3 (01:09→17:25)
[2019-02-18] MEDS: Morphine 4 MG/ML VIAL (1 ml) 4 MG/ML VIAL IV PRN ×4 (03:26→20:17)
[2019-02-18] MEDS: NS 0.9% 1000 ML** 1,000 ML IV SCH ×3 (04:01→19:13)
[2019-02-18 05:52] LABS: ABS Eosinophils 0.2 10^3/ul (0-0.6); ABS Monocytes 0.9 10^3/ul (0-0.8); ABS Neutrophils 9.9 10^3/ul (1.5-7.7); Eosinophil % 1.7 %; Hematocrit 36 % (42-52); Hemoglobin 12.1 g/dL (14.0-18.0); Lymphocyte % 8.2 %; Mean Corpuscular HGB Conc 33 g/dL (31-36); Mean Corpuscular Hemoglobin 30 pg (27-31); Mean Corpuscular Volume 89 fL (80-94); Mean Platelet Volume 7.8 fL (7.4-10.4); Platelet Count 154 10^3/uL (150-450); Red Blood Count 4.07 10^6 /uL (4.18-5.48); Red Cell Distribution Width 14 % (10.5-15); White Blood Count 12.1 10^3/uL (3.5-10.8)
[2019-02-18] MEDS: Heparin VIAL(*) 5000 UNITS/ML VIAL (FIVE THOUSAND) SUBCUT SCH ×3 (05:59→21:02)
[2019-02-18 06:10] LABS: BUN/Creatinine Ratio 15.9 (8-20); Calcium 8.4 mg/dL (8.6-10.3); EGFR African American 67.4 (>60); EGFR Non-African American 55.7 (>60); Potassium 3.7 mmol/L (3.5-5.0)
--- NOTE | 2019-02-18 08:09 | PN ---
Progress Note - Progress Note Date of Service: 02/18/19 SOAP: Subjective: Still with about the same RLQ abd pain, no improvement One small loose BM yesterday No N/V, tolerating some clear liquids Objective: Temp Pulse Resp BP Pulse Ox 98.3 F 77 22 176/70 95 02/18/19 07:13 02/18/19 07:13 02/18/19 07:26 02/18/19 07:13 02/18/19 07:13 Intake & Output 02/16/19 02/17/19 02/18/19 02/19/19 06:59 06:59 06:59 06:59 Intake Total 2100 1100 5239 Output Total 1850 1600 Balance 2100 -750 3639 Weight 300 lb 300 lb Intake: IV Fluids 2000 1100 3609 KCL 279 NS 990 3120 Zosyn 110 210 IVPB 100 110 Zosyn 110 Oral 0 1520 Output: Urine 1850 1600 Other: Estimated Void Medium Date of Last Bowel 02/17/19 Movement # Bowel Movements 0 Estimated Stool Amount Medium # Voids 1 PEX: Comfortable Lungs are clear Abd is soft and slightly distended. Bowel sounds present but hypoactive Tender RLQ with some voluntary guarding Laboratory Results - last 24 hr 02/17/19 02/17/19 02/17/19 05:50 05:50 15:11 WBC 10.0 RBC 4.02 L Hgb 12.1 L Hct 36 L MCV 91 MCH 30 MCHC 33 RDW 14 Plt Count 131 L MPV 8.6 Neut % (Auto) 86.9 Lymph % (Auto) 5.4 [place] % (Auto) 6.0 Eos % (Auto) 1.4 Baso % (Auto) 0.3 Absolute Neuts (auto) 8.7 H Absolute Lymphs (auto) 0.5 L Absolute Monos (auto) 0.6 Absolute Eos (auto) 0.1 Absolute Basos (auto) 0.0 Absolute Nucleated RBC 0.0 Nucleated RBC % 0.0 INR (Anticoag Therapy) APTT Sodium 135 133 L Potassium 3.3 L 3.7 Chloride 104 105 Carbon Dioxide 20 L 21 L Anion Gap 11 7 BUN 28 H 24 Creatinine 1.56 H 1.54 H Est GFR ( Amer) 55.6 56.4 Est GFR (Non-Af Amer) 45.9 46.6 BUN/Creatinine Ratio 17.9 15.6 Glucose 68 L 82 Calcium 8.3 L 8.5 L Phosphorus 2.9 Magnesium 2.1 02/17/19 02/18/19 02/18/19 15:11 05:23 05:23 WBC 12.1 H RBC 4.07 L Hgb 12.1 L Hct 36 L MCV 89 MCH 30 MCHC 33 RDW 14 Plt Count 154 MPV 7.8 Neut % (Auto) 82.4 Lymph % (Auto) 8.2 [place] % (Auto) 7.4 Eos % (Auto) 1.7 Baso % (Auto) 0.3 Absolute Neuts (auto) 9.9 H Absolute Lymphs (auto) 1.0 Absolute Monos (auto) 0.9 H Absolute Eos (auto) 0.2 Absolute Basos (auto) 0.0 Absolute Nucleated RBC 0.0 Nucleated RBC % 0.0 INR (Anticoag Therapy) 1.16 H APTT 33.2 Sodium 133 L Potassium 3.7 Chloride 106 Carbon Dioxide 18 L Anion Gap 9 BUN 21 Creatinine 1.32 H Est GFR ( Amer) 67.4 Est GFR (Non-Af Amer) 55.7 BUN/Creatinine Ratio 15.9 Glucose 83 Calcium 8.4 L Phosphorus Magnesium Assessment: Acute appendicitis-possible perforation-treated non-operatively On Elliquis for afib-stopped ARF-improving with hydration WBC elevated after being normal yesterday Persistent RLQ abd pain Plan: CT scan Abd/Pelvis today for follow up-if worsening pain or significant worsening on CT scan or abscess, may require laparoscopy or percutaneous drainage now that he is safely off Elliquis and renal function has improved. All discussed with patient.
[2019-02-18] MEDS: Metoprolol Succinate XL TAB* 25 MG PO SCH (08:20)
[2019-02-18] MEDS ORDERED: Iodixanol* (CONTRAST) 320 MG/ML 100 ML SDV IV ONE (14:03)
[2019-02-18] MEDS ORDERED: Metoprolol Tartrate IV* 1 MG/ML 5 ML VIAL IV PRN (16:21)
[2019-02-18] MEDS ORDERED: NS 0.9% 500 ML* 500 ML IV ONE (16:23)
[2019-02-18] MEDS ORDERED: NS 0.9% 1000 ML** 1,000 ML IV SCH (17:37)
[2019-02-18] MEDS ORDERED: Lactated Ringers 1000 ML Bag* 1,000 ML IV ONE (17:38)
[2019-02-18] MEDS: KCL 20 MEQ/100 ML IVPREMIX* 20 MEQ/100 ML BAG IV SCH ×2 (17:42→20:09)
[2019-02-18] MEDS: Diltiazem TAB* 60 MG PO SCH (17:43)
--- NOTE | 2019-02-18 17:52 | PN ---
Subjective Date of Service: 02/18/19 Interval History: Mr. Valenzuela reports that he continues to have right lower quadrant abdominal pain that is unchanged. He denies chest pain, SOB, or nausea. His heart rate is elevated with history of afib but he does not feel palpitations. Objective Active Medications: Acetaminophen (Tylenol Tab*) 650 mg PO Q6H PRN Atorvastatin Calcium (Lipitor*) 20 mg PO 2100 [facility] Diltiazem HCl (Cardizem Tab*) 60 mg PO Q6HR [facility] Heparin Sodium (Porcine) (Heparin Vial(*)) 5,000 units SUBCUT Q8HR [facility] Potassium Chloride (Potassium Chloride 20 Meq/100 Ml Ivpremix*) 20 meq in 100 mls @ 50 mls/hr IV Q2H [facility] Lactated Ringer's (Lactated Ringers 1000 Ml Bag*) 1,000 mls @ 100 mls/hr IV ONCE ONE Metoprolol Succinate (Toprol Xl Tab*) 25 mg PO DAILY [facility] Metoprolol Tartrate (Lopressor Iv*) 5 mg IV Q6H PRN Morphine Sulfate (Morphine 4 Mg/Ml Vial (1 Ml)) 4 mg IV Q2H PRN Ondansetron HCl (Zofran Inj*) 4 mg IV Q6H PRN Vital Signs: Temp Pulse Resp BP Pulse Ox 99.5 F 77 20 113/63 97 02/18/19 19:30 02/18/19 19:30 02/18/19 20:17 02/18/19 19:30 02/18/19 19:30 Oxygen Devices in Use Now: None Appearance: Male sitting up in bed talking with multiple family members in NAD Eyes: No Scleral Icterus Respiratory: Symmetrical Chest Expansion and Respiratory Effort, Clear to Auscultation Cardiovascular: NL Sounds; No Murmurs; No JVD, No Edema Abdominal: - - Soft, tenderness to gentle palpation in right lower quadrant Extremities: No Edema Skin: No Rash or Ulcers Neurological: Alert and Oriented x 3, NL Muscle Strength and Tone Nutrition: Taking PO's Result Diagrams: 02/18/19 05:23 02/18/19 05:23 Additional Lab and Data: . Assess/Plan/Problems-Billing Assessment: 58 yo white male with PMHx afib (on AC), HTN, HLD, MARZENA (not tolerant to CPAP) presented with chills and abd pain, found to have appendicitis with possible perforation. Hospital medicine consulted for comanagement of chronic medical conditions. - Patient Problems (1) Appendicitis Comment: -management per general surgery,repeat CT today with plan for surgery in AM -hold eliquis -continue prn morphine and tylenol (2) SANJAY (acute kidney injury) Comment: -Resolving with IVF -improvement, Cr today 1.3 -Switch to LR given hyperchloremic metabolic acidosis (3) Atrial fibrillation Comment: -on eliquis at home, currently held for surgery -HR 120s this afternoon, no improvement with additional metoprolol, cardizem started (4) Hypertension Comment: -normotensive -continue metoprolol -holding lisinopril/hctz (5) MARZENA (obstructive sleep apnea) Comment: -pt previously CPAP intolerant -continue overnight O2 and continues pulse ox overnight only (6) DVT prophylaxis Comment: -SCDs -heparin TID (7) Full code status Comment: Status and Disposition: per gen surg
[2019-02-18 18:47] LABS: Magnesium 2.1 mg/dL (1.9-2.7)
[2019-02-18] MEDS ORDERED: Diltiazem IV push/loading dose 5 MG/ML 5 ML vial (25 mg) IV SLOW PU ONE (19:11)
[2019-02-18 19:19] LABS: Urine Appearance Cloudy; Urine Bacteria Absent (Absent); Urine Bilirubin Negative (Negative); Urine Blood 2+ (Negative); Urine Color Amber; Urine Glucose Negative (Negative); Urine Ketones 1+ (Negative); Urine Nitrite Negative (Negative); Urine Protein 1+(30 mg/dL) (Negative); Urine Red Blood Cell 3+(>10/hpf) (Absent); Urine Specific Gravity > 1.060 (1.010-1.030); Urine Urobilinogen Negative (Negative); Urine White Blood Cell Trace(0-5/hpf) (Absent)
[2019-02-18] MEDS ORDERED: Diltiazem DRIP* 100 MG/100 ML ADDV.BAG IV SCH (20:00)
[2019-02-18] MEDS: Atorvastatin* 20 MG TAB PO SCH (21:02)
[2019-02-19] MEDS: Diltiazem TAB* 60 MG PO SCH ×5 (00:29→23:51)
[2019-02-19] MEDS: Piperacillin/Tazobac ADVAN(*) 3.375 GM in NS 0.9% 100 ML* 100 ML IVPB SCH ×3 (00:29→17:27)
[2019-02-19] MEDS: Morphine 4 MG/ML VIAL (1 ml) 4 MG/ML VIAL IV PRN ×2 (01:36→08:50)
[2019-02-19] MEDS: Heparin VIAL(*) 5000 UNITS/ML VIAL (FIVE THOUSAND) SUBCUT SCH ×3 (05:43→20:57)
[2019-02-19 06:07] LABS: Hematocrit 35 % (42-52); Hemoglobin 11.7 g/dL (14.0-18.0); Mean Corpuscular HGB Conc 34 g/dL (31-36); Mean Corpuscular Hemoglobin 30 pg (27-31); Mean Corpuscular Volume 89 fL (80-94); Mean Platelet Volume 7.4 fL (7.4-10.4); Platelet Count 159 10^3/uL (150-450); Red Blood Count 3.94 10^6 /uL (4.18-5.48); Red Cell Distribution Width 14 % (10-15); White Blood Count 11.1 10^3/uL (3.5-10.8)
[2019-02-19 06:24] LABS: Calcium 8.3 mg/dL (8.6-10.3); EGFR African American 85.9 (>60); Potassium 3.7 mmol/L (3.5-5.0)
--- NOTE | 2019-02-19 07:44 | PN ---
Progress Note - Progress Note Date of Service: 02/19/19 SOAP: Subjective: Still with right lower abdominal pain Small BM yesterday, tolerating some liquids Episode of afib yesterday, now appears converted Objective: Temp Pulse Resp BP Pulse Ox 97.7 F 74 20 152/68 98 02/19/19 03:35 02/19/19 03:35 02/19/19 03:35 02/19/19 03:35 02/19/19 03:35 Intake & Output 02/17/19 02/18/19 02/19/19 02/20/19 06:59 06:59 06:59 06:59 Intake Total 1100 5239 7747 Output Total 1850 1600 1750 Balance -750 3639 5997 Weight 300 lb 300 lb Intake: IV Fluids 1100 3609 5547 KCL 279 NS 990 3120 5244 Zosyn 110 210 303 IVPB 110 600 NS 600 Zosyn 110 Oral 0 1520 1600 Output: Urine 1850 1600 1750 Other: Estimated Void Medium Date of Last Bowel 02/17/19 Movement # Bowel Movements 0 Estimated Stool Amount Medium # Voids 1 PEX: Comfortable Lungs are clear Abd is obese and slightly distended. Few bowel sounds are present. Tender in the RLQ with voluntary guarding No generalized peritoneal irritation Laboratory Results - last 24 hr 02/18/19 02/18/19 02/19/19 05:23 19:00 05:58 WBC RBC Hgb Hct MCV MCH MCHC RDW Plt Count MPV Sodium 133 L 134 L Potassium 3.7 3.7 Chloride 106 107 Carbon Dioxide 18 L 20 L Anion Gap 9 7 BUN 21 15 Creatinine 1.32 H 1.07 Est GFR ( Amer) 67.4 85.9 Est GFR (Non-Af Amer) 55.7 71.0 BUN/Creatinine Ratio 15.9 14.0 Glucose 83 109 H Calcium 8.4 L 8.3 L Magnesium 2.1 2.0 Urine Color Lillian Urine Appearance Cloudy Urine pH 5.0 Ur Specific [place] > 1.060 H Urine Protein 1+(30 mg/dl) A Urine Ketones 1+ A Urine Blood 2+ A Urine Nitrate Negative Urine Bilirubin Negative Urine Urobilinogen Negative Ur Leukocyte Esterase Negative Urine WBC (Auto) Trace(0-5/hpf) Urine RBC (Auto) 3+(>10/hpf) A Urine Bacteria Absent Urine Glucose Negative 02/19/19 05:58 WBC 11.1 H RBC 3.94 L Hgb 11.7 L Hct 35 L MCV 89 MCH 30 MCHC 34 RDW 14 Plt Count 159 MPV 7.4 Sodium Potassium Chloride Carbon Dioxide Anion Gap BUN Creatinine Est GFR ( Amer) Est GFR (Non-Af Amer) BUN/Creatinine Ratio Glucose Calcium Magnesium Urine Color Urine Appearance Urine pH Ur Specific [place] Urine Protein Urine Ketones Urine Blood Urine Nitrate Urine Bilirubin Urine Urobilinogen Ur Leukocyte Esterase Urine WBC (Auto) Urine RBC (Auto) Urine Bacteria Urine Glucose CT reviewed--worsening inflammation in the right lower quadrant of abdomen, no significant free air,no abscess, there is some free fluid in RLQ. Assessment: Acute appendicitis--initially treated non-operatively as patient was on Elliquis and had a delayed presentation and also noted to have acute renal failure. He continues to have significant RLQ abd pain and although he remains afebrile he has a mild elevation in WBC. There are no signs of sepsis. He has now been off Elliquis for 72 hours and his renal failure has resolved. CT yesterday as above with worsening picture of inflammation and he continues with significant pain. There was felt to be an appendicolith present on the initial CT as well. He developed transient afib yesterday (the reason he was on Elliquis) which converted after beta apollo and cardizem was given. Today his renal function is normal and his heart rate is in the 70's. I discussed his care with him and his . He is not improving on IV abx only and at this point with the worsening CT findings and continued abdominal pain, I recommend proceeding with surgery to perform appendectomy and drainage as I now feel he is failing non-operative management and with a possible appendicolith present, even percutaneous drainage of an abscess that may form in the future may not be effective. After our discussion, he would like to proceed with surgery with the understanding that the procedure may need to be done open. Please see below. Plan: Laparoscopic appendectomy, possible open appendectomy today. Procedure was discussed in detail with the patient and his and the risks of, but not limited to, of bleeding, infection, abscess, sepsis, open procedure (possible laparotomy), bowel resection, injury to peritoneal and retroperitoneal structures, anesthetic risks, blood clots/pulmonary embolism all explained. Also discussed grsi Pritchett, hospitalist who feels he is optimized for surgery this morning.
[2019-02-19 08:00] LABS: ABS Basophils 0.1 10^3/ul (0-0.2); ABS Eosinophils 0.3 10^3/ul (0-0.6); ABS Lymphocytes 1.5 10^3/ul (1.0-4.8); ABS Monocytes 1.3 10^3/ul (0-0.8); Eosinophil % 2.3 %; Lymphocyte % 13.2 %
[2019-02-19] MEDS: Metoprolol Succinate XL TAB* 25 MG PO SCH (08:36)
[2019-02-19] MEDS: NS 0.9% 1000 ML** 1,000 ML IV SCH ×2 (08:38→15:25)
[2019-02-19] MEDS ORDERED: Prochlorperazine TAB* 5 MG PO PRN (08:52)
--- NOTE | 2019-02-19 09:57 | PN ---
Subjective Date of Service: 02/19/19 Interval History: Mr. Kendrick continues to have right lower quadrant pain Objective Active Medications: Acetaminophen (Tylenol Tab*) 650 mg PO Q6H PRN Atorvastatin Calcium (Lipitor*) 20 mg PO 2100 [facility] Diltiazem HCl (Cardizem Tab*) 60 mg PO Q6HR [facility] Heparin Sodium (Porcine) (Heparin Vial(*)) 5,000 units SUBCUT Q8HR [facility] Piperacillin Sod/Tazobactam (Sod 3.375 gm/ Sodium Chloride) 100 mls @ 25 mls/ hr IVPB Q8H [facility] Sodium Chloride (Ns 0.9% 1000 Ml) 1,000 mls @ 75 mls/hr IV PER RATE [facility] Metoprolol Succinate (Toprol Xl Tab*) 25 mg PO DAILY [facility] Metoprolol Tartrate (Lopressor Iv*) 5 mg IV Q6H PRN Morphine Sulfate (Morphine 4 Mg/Ml Vial (1 Ml)) 4 mg IV Q2H PRN Ondansetron HCl (Zofran Inj*) 4 mg IV Q6H PRN Prochlorperazine (Compazine Tab*) 5 mg PO Q6H PRN Vital Signs: Temp Pulse Resp BP Pulse Ox 98.6 F 77 16 163/76 97 02/19/19 07:00 02/19/19 07:00 02/19/19 08:50 02/19/19 07:00 02/19/19 07:00 Oxygen Devices in Use Now: None Appearance: Male sitting up in chair Respiratory: Symmetrical Chest Expansion and Respiratory Effort, Clear to Auscultation Cardiovascular: NL Sounds; No Murmurs; No JVD, No Edema Abdominal: - - Pain in right lower quadrant Extremities: No Edema Skin: No Rash or Ulcers Neurological: Alert and Oriented x 3, NL Muscle Strength and Tone Result Diagrams: 02/20/19 05:16 02/20/19 05:16 Additional Lab and Data: . Assess/Plan/Problems-Billing Assessment: 58 yo white male with PMHx afib (on AC), HTN, HLD, MARZENA (not tolerant to CPAP) presented with chills and abd pain, found to have appendicitis with possible perforation. Hospital medicine consulted for comanagement of chronic medical conditions. - Patient Problems (1) Appendicitis Comment: - Management per general surgery, plan for surgery today - Eliquis on hold since AM 02/16/19 - Patient had episode of rapid afib yesterday which resolved with addition of cardizem po. Patient asymptomatic, BP stable. - Acute renal failure resolved - Patient is medically stabilized for required surgery today. (2) SANJAY (acute kidney injury) Comment: - Resolved with IVF - Continue LR given hyperchloremic metabolic acidosis (3) Atrial fibrillation Comment: - Episode of rapid afib yesterday, resolved with cardizem - On eliquis at home, currently held for surgery (4) Hypertension Comment: - Normotensive - Continue metoprolol and cardizem - Holding lisinopril/hctz (5) MARZENA (obstructive sleep apnea) Comment: - Pt previously CPAP intolerant - Continue overnight O2 and continues pulse ox overnight only (6) DVT prophylaxis Comment: - SCDs - Heparin TID (7) Full code status Comment: Status and Disposition: Disposition per surgery
[2019-02-19] MEDS ORDERED: Propofol* 10 MG/ML 20 ML BTL ONE ×2 (10:36→10:37)
[2019-02-19] MEDS ORDERED: Lidocaine 2% PF * 5 ML VIAL ONE (10:37)
[2019-02-19] MEDS ORDERED: Rocuronium* 10 MG/ML VIAL ONE (10:37)
[2019-02-19] MEDS ORDERED: fentaNYL* 50 MCG/ML 2 ML VIAL (100 MCG VIAL) ONE ×2 (10:57→13:32)
[2019-02-19] MEDS ORDERED: Sugammadex * 500 MG/5 ML VIAL IV PUSH ONE (11:55)
[2019-02-19] MEDS ORDERED: Phenylephrine 40 MCG/ML SYRINGE ONE (12:00)
--- NOTE | 2019-02-19 13:07 | BRIEFOPN ---
Brief Operative Note - Surgery Procedures: Procedures OPERATIVE REPORT Pre-op: Acute appendicitis Post-Op: Acute suppurative appendicitis Procedure: Laparoscopy, open appendectomy Surgeon: MD Codi Asst: Travis Evangelista MD, JACKLYN Friedman Anes: general with local, Dr. Bruno IVF: EBL:100 cc Specimen: Appendix Drain: #10 RADHA drain Wound: 4 To PACU
[2019-02-19] MEDS ORDERED: Naloxone* 0.4 MG/ML 1 ML VIAL IV PRN (13:12)
[2019-02-19] MEDS: fentaNYL* 50 MCG/ML 2 ML VIAL (100 MCG VIAL) IV PRN ×4 (13:33→14:14)
[2019-02-19] MEDS ORDERED: Ketorolac INJ* 30 MG/ML 1 ML VIAL IV PRN (15:03)
[2019-02-19] MEDS ORDERED: Naloxone* 0.4 MG/ML 1 ML VIAL IV PUSH PRN (15:04)
[2019-02-19] MEDS ORDERED: Morphine 10 MG/ML VIAL (1 ml) ONE (15:09)
[2019-02-19] MEDS: HYDROmorphone PCA* 20 MG/20 ML PCA.SYRING PCA SCH (15:40)
[2019-02-19] MEDS ORDERED: Morphine 10 MG/ML VIAL (1 ml) IV ONE (16:00)
--- NOTE | 2019-02-19 20:05 | OP ---
DATE OF OPERATION: 02/19/19 - ROOM #342 DATE OF : 60 SURGEON: Joshua Kincaid MD ASSISTANTS: Lukas Evangelista MD; JACKLYN Payne ANESTHESIOLOGIST: Dr. Bruno. ANESTHESIA: General with local. PRE-OP DIAGNOSIS: Acute appendicitis. POST-OP DIAGNOSIS: Acute suppurative appendicitis. OPERATIVE PROCEDURE: Laparoscopy with conversion to open appendectomy. ESTIMATED BLOOD LOSS: 100 cc. IV FLUIDS: 1.6 L of crystalloid. WOUND CLASSIFICATION: IV. DRAINS: A #10 RADHA drain in the right lower quadrant. SPECIMEN: Appendix. FINDINGS: The patient had acute suppurative appendicitis without evidence of gangrene or perforation, however. There appeared to be appendicolith within the appendix itself. There was no abscess formation. There was a significant amount of inflammatory inflammation in the right lower quadrant, however. BRIEF HISTORY: Mr. Lukas Kendrick is a 58-year-old gentleman who presented to the emergency room with 2 days of worsening right lower quadrant abdominal pain. He was noted to have a leukocytosis, with a CT scan showing findings most consistent with acute appendicitis and appendicolith within the appendiceal lumen. There was no abscess and there may have been some small amount of extraluminal air. The patient was on Eliquis for atrial fibrillation and also found to be in acute renal failure due to apparent gastrointestinal losses with copious amounts of diarrhea and vomiting in the past 2 days. At this point, he was started on IV antibiotics and treated nonoperatively. His renal function has returned to normal with aggressive hydration and his Eliquis has been held now for [address] scan showed worsening inflammation in the right lower quadrant. There is no abscess however. He is having persistent worsening discomfort, although he has been afebrile, not showing signs of sepsis. It is felt that the optimal management at this point would be to proceed with an appendectomy. The procedure was discussed with the patient and his and the risks of, but not limited to bleeding, infection, intraabdominal abscess formation, injury to peritoneal and retroperitoneal structures, good possibility of an open procedure , possible bowel resection, subsequent anastomotic leak with abscess and sepsis , the risks of blood clots and general anesthesia were discussed. They understand these risks and wished to proceed. DESCRIPTION OF PROCEDURE: Written informed consent was obtained, the abdomen was marked with indelible ink, and preoperative antibiotics were administered. The patient was taken to the operating room and placed in the supine position. Sequential compression devices were placed and a warming blanket was applied. General anesthesia was administered. A Greer catheter was inserted. The abdomen was prepped and draped in the usual sterile fashion. Time-out verification was completed. Initially, a small transverse incision was made in the left upper quadrant of the abdomen, and using the 5 mm 0 degree camera through a 5 mm Optiview port, the peritoneal cavity was entered without difficulty. The abdomen was insufflated to 15 mmHg. Careful evaluation in the left upper quadrant revealed no evidence of visceral or omental injury from the Optiview. A 5 mm port was placed in the left lower abdominal wall and a second 5 mm port was placed in the right upper quadrant of the abdomen. It was obvious that there was a significant amount of inflammatory process in the right lower quadrant. Omentum was adherent to the anterior abdominal wall as well as laterally and this was bluntly dissected off. There appeared to be some of the sigmoid colon adherent to the anterior abdominal wall and this was carefully mechanically taken down. At this point, a portion of the terminal ileum was identified and followed into the right lower quadrant. The omentum was quite adherent down into the gutter, and with his morbid obesity and a significant amount of dense inflammation, after working for approximately 10 to 15 minutes without adequate identification of the appendix and difficulty viewing the cecum and ascending colon, I made a decision to proceed with an open appendectomy. Next, a right lower quadrant transverse incision was made, carried down through the skin and subcutaneous tissue. The musculature laterally along with fascia was divided in a muscle splitting technique as much as possible. I did have to extend the incision the incision medially along the anterior rectus sheath including the rectus muscle and the posterior sheath to obtain adequate exposure due to the large pannus. I was then able to visualize the cecum. I was able to identify the appendix at its tip and followed this down through some dense inflammation using a combination of blunt and sharp dissection to free this up from the surrounding omentum. I did evaluate the sigmoid colon and there was no evidence of injury. The terminal ileum and cecum were unremarkable. Once I was able to visualize the entire length of the appendix, it appeared that this was only suppuratively inflamed. There were fecaliths within the appendix. There was no evidence of gangrene or perforation and no abscess was identified. The mesoappendix was taken with the LigaSure device down to the base of the appendix. The base of the appendix and cecum were soft and supple without evidence of acute inflammation. I used a blue load of a TA 30 stapler to divide the appendix at its base and this was oversewn with several interrupted 2-0 silk sutures. The right lower quadrant was then irrigated thoroughly including the pelvis and up around the liver. Hemostasis was assured. A #10 RADHA drain was brought through a separate stab wound lateral and inferior to the incision and sutured to the skin with 3-0 Prolene suture. The drain was placed in the right lower quadrant extending down into the pelvis. The posterior fascial layer as well as peritoneum was then closed with running # 1 Vicryl suture. The musculature laterally was closed in two layers with a separate fascia closed with interrupted #1 Vicryl suture. The anterior fascia of the more medial rectus sheath was closed with interrupted #1 Vicryl suture. The skin was loosely approximated with a stapling device and packed with one- half inch Nu Gauze and sterile dressings were applied. Likewise, the three laparoscopic port sites were closed with a stapling device and covered with dry sterile dressings. The patient tolerated the procedure well and was taken to the recovery room in stable condition. [id number]/[facility] #: [id number] PRISCILLA
[2019-02-19] MEDS: Atorvastatin* 20 MG TAB PO SCH (20:56)
[2019-02-20] MEDS: Piperacillin/Tazobac ADVAN(*) 3.375 GM in NS 0.9% 100 ML* 100 ML IVPB SCH ×3 (01:01→17:19)
[2019-02-20] MEDS: NS 0.9% 1000 ML** 1,000 ML IV SCH (04:08)
[2019-02-20] MEDS: Heparin VIAL(*) 5000 UNITS/ML VIAL (FIVE THOUSAND) SUBCUT SCH ×3 (05:31→21:45)
[2019-02-20] MEDS: Diltiazem TAB* 60 MG PO SCH ×3 (05:31→18:11)
[2019-02-20 06:04] LABS: Hematocrit 39 % (42-52); Hemoglobin 12.9 g/dL (14.0-18.0); Mean Corpuscular HGB Conc 34 g/dL (31-36); Mean Corpuscular Hemoglobin 30 pg (27-31); Mean Corpuscular Volume 89 fL (80-94); Mean Platelet Volume 7.6 fL (7.4-10.4); Platelet Count 205 10^3/uL (150-450); Red Blood Count 4.32 10^6 /uL (4.18-5.48); Red Cell Distribution Width 14 % (10-15); White Blood Count 14.7 10^3/uL (3.5-10.8)
[2019-02-20 06:24] LABS: BUN/Creatinine Ratio 12.5 (8-20); Calcium 7.6 mg/dL (8.6-10.3); EGFR African American 81.5 (>60); EGFR Non-African American 67.3 (>60); Potassium 3.8 mmol/L (3.5-5.0)
[2019-02-20] MEDS: Metoprolol Succinate XL TAB* 25 MG PO SCH (08:53)
--- NOTE | 2019-02-20 11:25 | PN ---
Progress Note - Progress Note Date of Service: 02/20/19 SOAP: Subjective: Pt seen and examined. Chart reviewed. Pt feeling better today. Slept in bed, now in chair. I tried to get him up, but it was too difficult for him ?flatus, some burping Objective: Temp Pulse Resp BP Pulse Ox 98.6 F 71 20 125/71 96 02/20/19 07:34 02/20/19 07:34 02/20/19 07:34 02/20/19 07:34 02/20/19 07:34 a and o x3 lungs poor effort abdo: obese/ ?distended/ NT RADHA serous ext edema, no tenderness Laboratory Last Values WBC 14.7 10^3/uL (3.5-10.8) H 02/20/19 05:16 RBC 4.32 10^6 /uL (4.18-5.48) 02/20/19 05:16 Hgb 12.9 g/dL (14.0-18.0) L 02/20/19 05:16 Hct 39 % (42-52) L 02/20/19 05:16 MCV 89 fL (80-94) 02/20/19 05:16 MCH 30 pg (27-31) 02/20/19 05:16 MCHC 34 g/dL (31-36) 02/20/19 05:16 RDW 14 % (10-15) 02/20/19 05:16 Plt Count 205 10^3/uL (150-450) 02/20/19 05:16 MPV 7.6 fL (7.4-10.4) 02/20/19 05:16 Neut % (Auto) 71.8 % 02/19/19 05:58 Lymph % (Auto) 13.2 % 02/19/19 05:58 Johnson % (Auto) 12.2 % 02/19/19 05:58 Eos % (Auto) 2.3 % 02/19/19 05:58 Baso % (Auto) 0.5 % 02/19/19 05:58 Absolute Neuts (auto) 8.0 10^3/ul (1.5-7.7) H 02/19/19 05:58 Absolute Lymphs (auto) 1.5 10^3/ul (1.0-4.8) 02/19/19 05:58 Absolute Monos (auto) 1.3 10^3/ul (0-0.8) H 02/19/19 05:58 Absolute Eos (auto) 0.3 10^3/ul (0-0.6) 02/19/19 05:58 Absolute Basos (auto) 0.1 10^3/ul (0-0.2) 02/19/19 05:58 Absolute Nucleated RBC 0.0 10^3/ul 02/19/19 05:58 Nucleated RBC % 0.0 02/19/19 05:58 INR (Anticoag Therapy) 1.16 (0.82-1.09) H 02/17/19 15:11 APTT 33.2 seconds (26.0-38.0) 02/17/19 15:11 Sodium 134 mmol/L (135-145) L 02/20/19 05:16 Potassium 3.8 mmol/L (3.5-5.0) 02/20/19 05:16 Chloride 106 mmol/L (101-111) 02/20/19 05:16 Carbon Dioxide 18 mmol/L (22-32) L 02/20/19 05:16 Anion Gap 10 mmol/L (2-11) 02/20/19 05:16 BUN 14 mg/dL (6-24) 02/20/19 05:16 Creatinine 1.12 mg/dL (0.67-1.17) 02/20/19 05:16 Est GFR ( Amer) 81.5 (>60) 02/20/19 05:16 Est GFR (Non-Af Amer) 67.3 (>60) 02/20/19 05:16 BUN/Creatinine Ratio 12.5 (8-20) 02/20/19 05:16 Glucose 98 mg/dL (70-100) 02/20/19 05:16 Lactic Acid 1.1 mmol/L (0.5-2.0) 02/16/19 04:37 Calcium 7.6 mg/dL (8.6-10.3) L 02/20/19 05:16 Phosphorus 2.9 mg/dL (2.5-5.0) 02/17/19 05:50 Magnesium 2.0 mg/dL (1.9-2.7) 02/19/19 05:58 Total Bilirubin 1.00 mg/dL (0.2-1.0) 02/15/19 23:50 AST 23 U/L (13-39) 02/15/19 23:50 ALT 15 U/L (7-52) 02/15/19 23:50 Alkaline Phosphatase 59 U/L (34-104) 02/15/19 23:50 Total Protein 6.8 g/dL (6.4-8.9) 02/15/19 23:50 Albumin 3.8 g/dL (3.2-5.2) 02/15/19 23:50 Globulin 3.0 g/dL (2-4) 02/15/19 23:50 Albumin/Globulin Ratio 1.3 (1-3) 02/15/19 23:50 Urine Color Lillian 02/18/19 19:00 Urine Appearance Cloudy 02/18/19 19:00 Urine pH 5.0 (5-9) 02/18/19 19:00 Ur Specific [place] > 1.060 (1.010-1.030) H 02/18/19 19:00 Urine Protein 1+(30 mg/dl) (Negative) A 02/18/19 19:00 Urine Ketones 1+ (Negative) A 02/18/19 19:00 Urine Blood 2+ (Negative) A 02/18/19 19:00 Urine Nitrate Negative (Negative) 02/18/19 19:00 Urine Bilirubin Negative (Negative) 02/18/19 19:00 Urine Urobilinogen Negative (Negative) 02/18/19 19:00 Ur Leukocyte Esterase Negative (Negative) 02/18/19 19:00 Urine WBC (Auto) Trace(0-5/hpf) (Absent) 02/18/19 19:00 Urine RBC (Auto) 3+(>10/hpf) (Absent) A 02/18/19 19:00 Urine Bacteria Absent (Absent) 02/18/19 19:00 Urine Glucose Negative (Negative) 02/18/19 19:00 Assessment: POD 1 open appy, obesity, deconditioned Plan: d/c neal advance diet [place] control home meds change IVF cont SPORT INTERN RADHA drain teaching OOB with assist
[2019-02-20] MEDS ORDERED: Albuterol HFA INHALER* 8 gm MDI INH PRN (11:26)
[2019-02-20] MEDS ORDERED: Ondansetron ODT TAB* 4 MG PO PRN (11:26)
[2019-02-20] MEDS ORDERED: Ibuprofen TAB* 400 MG PO PRN (11:29)
--- NOTE | 2019-02-20 11:35 | PN ---
Subjective Date of Service: 02/20/19 Interval History: Mr. Kendrick reports that his pain is controlled while at rest though it does hurt quite significantly when he moves around. He denies other complaint including chest pain, SOB, or nausea. He is tolerating clear liquids now. He has been burping but has not had any flatus or BM. Objective Active Medications: Acetaminophen (Tylenol Tab*) 650 mg PO Q6H PRN Albuterol (Ventolin Hfa Inhaler*) 2 puff INH Q4H PRN Atorvastatin Calcium (Lipitor*) 20 mg PO 2100 CHRISTOS Diltiazem HCl (Cardizem Tab*) 60 mg PO Q6HR CHRISTOS Lisinopril/HCTZ (Zestoretic 20/12.5(Nf)) 2 tab PO DAILY CHRISTOS Heparin Sodium (Porcine) (Heparin Vial(*)) 5,000 units SUBCUT Q8HR CHRISTOS Piperacillin Sod/Tazobactam (Sod 3.375 gm/ Sodium Chloride) 100 mls @ 25 mls/ hr IVPB Q8H [facility] Sodium Chloride (Ns 0.9% 1000 Ml) 1,000 mls @ 75 mls/hr IV PER RATE CHRISTOS Hydromorphone HCl (Dilaudid Science Education Professor*) 20 mg in 20 mls @ 0 mls/hr TRAVEL RN OR .change Q24H CHRISTOS; Protocol Ketorolac Tromethamine (Toradol Inj*) 30 mg IV Q6H PRN Metoprolol Tartrate (Lopressor Tab*) 25 mg PO DAILY CHRISTOS Naloxone HCl (Narcan*) 0.08 mg IV PUSH .Q2MIN PRN Non-Formulary Medication (Eliquis*) 5 mg PO BID CHRISTOS Ondansetron HCl (Zofran Odt Tab*) 4 mg PO Q6H PRN Prochlorperazine (Compazine Tab*) 5 mg PO Q6H PRN Vital Signs: Temp Pulse Resp BP Pulse Ox 98.6 F 71 20 125/71 96 02/20/19 07:34 02/20/19 07:34 02/20/19 07:34 02/20/19 07:34 02/20/19 07:34 Oxygen Devices in Use Now: None Appearance: Male sitting up in chair, at bedside Eyes: No Scleral Icterus Ears/Nose/Mouth/Throat: Mucous Membranes Moist Neck: Trachea Midline Respiratory: Symmetrical Chest Expansion and Respiratory Effort, Clear to Auscultation Cardiovascular: NL Sounds; No Murmurs; No JVD, No Edema Abdominal: - - Mild distention, no rebound or guarding, no pain with mild palpation, BS +, lap sites and incision dressings CDI, RADHA drain with minimal serosanginous draininage Extremities: No Edema Neurological: Alert and Oriented x 3, NL Muscle Strength and Tone Result Diagrams: 02/20/19 05:16 02/20/19 05:16 Additional Lab and Data: . Microbiology and Other Data: Microbiology 02/18/19 19:00 Urine Culture - Final Urine No Growth (<1,000 CFU/mL) Assess/Plan/Problems-Billing Assessment: 58 yo white male with PMHx afib (on AC), HTN, HLD, MARZENA (not tolerant to CPAP) presented with chills and abd pain, found to have appendicitis with possible perforation. Hospital medicine consulted for comanagement of chronic medical conditions. - Patient Problems (1) Appendicitis Comment: - S/P open appendectomy on 02/19/19 - Management per general surgery - Eliquis on hold since AM 02/16/19 - Patient had episode of rapid afib 02/18 which resolved with addition of cardizem po. Patient asymptomatic, BP stable. - Acute renal failure resolved - Continue clear liquids, encourage ambulation, encourage IS and cough/deep breathing (2) SANJAY (acute kidney injury) Comment: - Resolved with IVF - Continue LR given hyperchloremic metabolic acidosis (3) Atrial fibrillation Comment: - Rate controlled - Episode of rapid afib 02/18, resolved with cardizem, continue metoprolol and cardizem - Eliquis on hold until approved per surgery to resume (4) Hypertension Comment: - Normotensive - Continue metoprolol and cardizem - Holding lisinopril/hctz (5) MARZENA (obstructive sleep apnea) Comment: - Pt previously CPAP intolerant - Continue overnight O2 and continues pulse ox overnight only (6) DVT prophylaxis Comment: - SCDs - Heparin TID (7) Full code status Comment: Status and Disposition: Disposition per surgery
[2019-02-20] MEDS ORDERED: Lactated Ringers 1000 ML Bag* 1,000 ML IV SCH (12:00)
[2019-02-20] MEDS: D5W 1/2 NS 1000 ML BAG* 1,000 ML IV SCH (12:01)
[2019-02-20] MEDS: HYDROmorphone PCA* 20 MG/20 ML PCA.SYRING PCA SCH (16:20)
[2019-02-20] MEDS: Atorvastatin* 20 MG TAB PO SCH (21:46)
[2019-02-21] MEDS: Diltiazem TAB* 60 MG PO SCH ×4 (00:39→17:27)
[2019-02-21] MEDS: Piperacillin/Tazobac ADVAN(*) 3.375 GM in NS 0.9% 100 ML* 100 ML IVPB SCH ×3 (00:39→17:27)
[2019-02-21] MEDS: D5W 1/2 NS 1000 ML BAG* 1,000 ML IV SCH (00:48)
[2019-02-21] MEDS: Heparin VIAL(*) 5000 UNITS/ML VIAL (FIVE THOUSAND) SUBCUT SCH ×2 (05:44→13:59)
[2019-02-21] MEDS ORDERED: oxyCODONE/Acetamin 5/325 MG* TAB PO PRN (09:05)
[2019-02-21] MEDS ORDERED: Morphine 10 MG/ML VIAL (1 ml) IV PRN (09:05)
[2019-02-21] MEDS: Metoprolol Tartrate TAB* 25 MG PO SCH (09:12)
[2019-02-21] MEDS: Lisinopril TAB* 10 MG PO SCH (09:12)
[2019-02-21] MEDS: Hydrochlorothiazide TAB* 25 MG PO SCH (09:12)
[2019-02-21] MEDS ORDERED: oxyCODONE/Acetamin 5/325 MG* TAB ONE (09:25)
[2019-02-21] MEDS: oxyCODONE/Acetamin 5/325 MG* TAB PO PRN ×4 (09:26→22:13)
--- NOTE | 2019-02-21 09:40 | PN ---
Subjective Date of Service: 02/21/19 Interval History: Ms. Kendrick is drowsy this morning. He notes that he was not able to sleep well last night due to multiple interruptions. 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 Objective Active Medications: Acetaminophen (Tylenol Tab*) 650 mg PO Q6H PRN Albuterol (Ventolin Hfa Inhaler*) 2 puff INH Q4H PRN Apixaban (Eliquis*) 5 mg PO BID CHRISTOS Atorvastatin Calcium (Lipitor*) 20 mg PO 2100 CHRISTOS Diltiazem HCl (Cardizem Tab*) 60 mg PO Q6HR [facility]STOS Heparin Sodium (Porcine) (Heparin Vial(*)) 5,000 units SUBCUT Q8HR [facility] Hydrochlorothiazide (Hydrodiuril Tab*) 25 mg PO DAILY CH[facility]STOS Piperacillin Sod/Tazobactam (Sod 3.375 gm/ Sodium Chloride) 100 mls @ 25 mls/ hr IVPB Q8H [facility]STOS Dextrose/Sodium Chloride (D5w 1/2 Ns 1000 Ml Bag*) 1,000 mls @ 75 mls/hr IV PER RATE CHRISTOS Ibuprofen (Motrin Tab*) 400 mg PO Q6H PRN Lisinopril (Prinivil Tab*) 40 mg PO DAILY CHRISTOS Metoprolol Tartrate (Lopressor Tab*) 25 mg PO DAILY CHRISTOS Morphine Sulfate (Morphine Inj (Syringe)*) 5 mg IV Q6H PRN Naloxone HCl (Narcan*) 0.08 mg IV PUSH .Q2MIN PRN Ondansetron HCl (Zofran Odt Tab*) 4 mg PO Q6H PRN Oxycodone/Acetaminophen (Percocet 5/325 Tab*) 2 tab PO Q4H PRN Oxycodone/Acetaminophen (Percocet 5/325 Tab*) 1 tab PO Q4H PRN Prochlorperazine (Compazine Tab*) 5 mg PO Q6H PRN Vital Signs: Temp Pulse Resp BP Pulse Ox 98.3 F 76 18 123/48 98 02/21/19 07:48 02/21/19 07:48 02/21/19 07:48 02/21/19 07:48 02/21/19 07:48 Oxygen Devices in Use Now: Nasal Cannula Appearance: Male lying in bed in NAD Eyes: No Scleral Icterus Ears/Nose/Mouth/Throat: Mucous Membranes Moist Respiratory: Symmetrical Chest Expansion and Respiratory Effort, Clear to Auscultation Cardiovascular: NL Sounds; No Murmurs; No JVD, No Edema Abdominal: - - Soft, dressings CDI, BS +, RADHA drain with serosanginous drainage Extremities: No Edema Skin: No Rash or Ulcers Neurological: NL Muscle Strength and Tone, - - Drowsy, awakens and answers questions appropriately Nutrition: Taking PO's Result Diagrams: 02/20/19 05:16 02/20/19 05:16 Additional Lab and Data: . Microbiology and Other Data: . Assess/Plan/Problems-Billing Assessment: 58 yo white male with PMHx afib (on AC), HTN, HLD, MARZENA (not tolerant to CPAP) presented with chills and abd pain, found to have appendicitis with possible perforation. Hospital medicine consulted for comanagement of chronic medical conditions. - Patient Problems (1) Appendicitis Comment: - S/P open appendectomy on 02/19/19 - Management per general surgery - Patient had episode of rapid afib 02/18 which resolved with addition of cardizem po. Patient asymptomatic, BP stable. - Acute renal failure resolved - Continue clear liquids, encourage ambulation, encourage IS and cough/deep breathing - Stop DURABILITY TECHNICIAN and switch to oxycodone with morphine IV prn for pain (2) SANJAY (acute kidney injury) Comment: - Resolved with IVF - Continue D51/2NS given hyperchloremic metabolic acidosis (3) Atrial fibrillation Comment: - Rate controlled - Episode of rapid afib 02/18, resolved with cardizem, continue metoprolol and cardizem - Eliquis resumed per surgery (4) Hypertension Comment: - Normotensive - Continue metoprolol and cardizem, lisinopril and hctz resumed per surgery (5) MARZENA (obstructive sleep apnea) Comment: - Pt previously CPAP intolerant - Continue overnight O2 and continues pulse ox overnight only - If mild drowsiness does not improve with discontinuation of DURABILITY TECHNICIAN, will check ABG (6) DVT prophylaxis Comment: - SCDs - Xarelto (7) Full code status Comment: Status and Disposition: Disposition per surgery
--- NOTE | 2019-02-21 10:59 | PN ---
Progress Note - Progress Note Date of Service: 02/21/19 SOAP: Subjective: Pt seen and examined. Feeling ok. OOB minimally. voiding on own. appetite improving. Feels bloated Objective: Temp Pulse Resp BP Pulse Ox 98.3 F 76 18 123/48 98 02/21/19 07:48 02/21/19 07:48 02/21/19 09:26 02/21/19 07:48 02/21/19 07:48 Intake & Output 02/20/19 02/21/19 02/21/19 22:59 06:59 14:59 Intake Total 500 240 Output Total 255 400 Balance 245 -160 a and o x3 abdo: soft/ obese/ edematous/ NT\ dressing removed. oozing at RUQ incision and gauze reapplied packing removed, no drainage or erythema; packing reapplied bulla dressed with antibiotic ointment, gauze RADHA: serous ext: edema, non-tender no / labs Assessment: POD2 open appy Plan: wound care RADHA teaching OOB/ PT abx labs in am
[2019-02-21] MEDS: Apixaban* 5 MG TAB PO SCH (22:13)
[2019-02-21] MEDS: Atorvastatin* 20 MG TAB PO SCH (22:13)
[2019-02-22] MEDS: Piperacillin/Tazobac ADVAN(*) 3.375 GM in NS 0.9% 100 ML* 100 ML IVPB SCH ×3 (00:26→17:02)
[2019-02-22] MEDS: Diltiazem TAB* 60 MG PO SCH ×4 (00:29→18:15)
[2019-02-22 05:28] LABS: Hematocrit 34 % (42-52); Hemoglobin 11.4 g/dL (14.0-18.0); Mean Corpuscular HGB Conc 34 g/dL (31-36); Mean Corpuscular Hemoglobin 30 pg (27-31); Mean Corpuscular Volume 88 fL (80-94); Mean Platelet Volume 6.9 fL (7.4-10.4); Platelet Count 241 10^3/uL (150-450); Red Blood Count 3.81 10^6 /uL (4.18-5.48); Red Cell Distribution Width 14 % (10-15); White Blood Count 16.1 10^3/uL (3.5-10.8)
[2019-02-22 05:44] LABS: BUN/Creatinine Ratio 10.8 (8-20); Calcium 7.9 mg/dL (8.6-10.3); EGFR African American 68.6 (>60); EGFR Non-African American 56.7 (>60); Potassium 3.3 mmol/L (3.5-5.0)
[2019-02-22] MEDS: oxyCODONE/Acetamin 5/325 MG* TAB PO PRN ×3 (05:49→22:04)
[2019-02-22 05:55] LABS: ABS Basophils 0.1 10^3/ul (0-0.2); ABS Eosinophils 0.3 10^3/ul (0-0.6); ABS Lymphocytes 1.7 10^3/ul (1.0-4.8); ABS Monocytes 1.1 10^3/ul (0-0.8); ABS Neutrophils 12.9 10^3/ul (1.5-7.7); Eosinophil % 1.9 %; Lymphocyte % 10.5 %
[2019-02-22] MEDS ORDERED: Potassium Chlor TAB* 20 MEQ TAB.ER PO ONE (07:06)
--- NOTE | 2019-02-22 08:07 | PN ---
Subjective Date of Service: 02/22/19 Interval History: Mr. Kendrick is feeling better today. He was able to get OOB with the assistance of his yesterday and was able to ambulate to the bathroom. He is passing gas, but no BM yet. Abdominal pain is improving. He denies CP, SOB, N /V. Appetite is good. Edema to BLE is slightly worse than usual. He is hoping to be discharged today. No concerns from nursing. Family History: Unchanged from Admission Social History: Unchanged from Admission Past Medical History: Unchanged from Admission Objective Active Medications: Acetaminophen (Tylenol Tab*) 650 mg PO Q6H PRN FEVER Albuterol (Ventolin Hfa Inhaler*) 2 puff INH Q4H PRN SHORTNESS OF BREATH Apixaban (Eliquis*) 5 mg PO BID CHRISTOS Atorvastatin Calcium (Lipitor*) 20 mg PO 2100 CHRISTOS Diltiazem HCl (Cardizem Tab*) 60 mg PO Q6HR [facility]STOS Hydrochlorothiazide (Hydrodiuril Tab*) 25 mg PO DAILY CH[facility]STOS Piperacillin Sod/Tazobactam (Sod 3.375 gm/ Sodium Chloride) 100 mls @ 25 mls/ hr IVPB Q8H [facility] Ibuprofen (Motrin Tab*) 400 mg PO Q6H PRN PAIN Lisinopril (Prinivil Tab*) 40 mg PO DAILY CHRISTOS Metoprolol Tartrate (Lopressor Tab*) 25 mg PO DAILY CH[facility]STOS Morphine Sulfate (Morphine 10 Mg/Ml Vial (1 Ml)) 5 mg IV Q6H PRN PAIN Naloxone HCl (Narcan*) 0.08 mg IV PUSH .Q2MIN PRN OVERSEDATION Ondansetron HCl (Zofran Odt Tab*) 4 mg PO Q6H PRN NAUSEA Oxycodone/Acetaminophen (Percocet 5/325 Tab*) 2 tab PO Q4H PRN PAIN Oxycodone/Acetaminophen (Percocet 5/325 Tab*) 1 tab PO Q4H PRN PAIN Prochlorperazine (Compazine Tab*) 5 mg PO Q6H PRN NAUSEA Vital Signs - 8 hr 02/22/19 02/22/19 02/22/19 00:22 00:29 00:36 Temperature 98.3 F Pulse Rate 46 64 Respiratory 20 18 Rate Blood Pressure 130/62 (mmHg) O2 Sat by Pulse 96 Oximetry 02/22/19 02/22/19 02/22/19 03:44 05:49 05:52 Temperature 98.0 F Pulse Rate 78 82 Respiratory 18 18 Rate Blood Pressure 139/68 150/58 (mmHg) O2 Sat by Pulse 95 Oximetry 02/22/19 07:27 Temperature 98.9 F Pulse Rate 80 Respiratory 18 Rate Blood Pressure 142/57 (mmHg) O2 Sat by Pulse 96 Oximetry Oxygen Devices in Use Now: None Appearance: Middle-aged male laying in bed in NAD Eyes: No Scleral Icterus Ears/Nose/Mouth/Throat: Mucous Membranes Moist Neck: NL Appearance and Movements; NL JVP, Trachea Midline Respiratory: Symmetrical Chest Expansion and Respiratory Effort, Clear to Auscultation Cardiovascular: NL Sounds; No Murmurs; No JVD, - - Irregular rhythm Extremities: - - +1 pitting BLE Skin: - - Surgical dressing RLQ and RADHA drain RUQ Neurological: Alert and Oriented x 3, NL Sensation Lines/Tubes/Other Access: Clean, Dry and Intact Peripheral IV Nutrition: Taking PO's Result Diagrams: 02/23/19 04:53 02/23/19 04:53 Assess/Plan/Problems-Billing Assessment: Mr. Kendrick is a 58 yo M with PMH of afib (on AC), HTN, HLD, MARZENA (not tolerant to CPAP); who presented with chills and abd pain, found to have appendicitis with possible perforation. Hospital medicine consulted for comanagement of chronic medical conditions. - Patient Problems (1) Appendicitis Code(s): K37 - UNSPECIFIED APPENDICITIS Comment: - S/p open appendectomy on 02/19/19 - Management per general surgery - Encourage ambulation, IS and cough/deep breathing - Continue morphine (2) SANJAY (acute kidney injury) Code(s): N17.9 - ACUTE KIDNEY FAILURE, UNSPECIFIED Comment: - Creatinine slightly up again today - Encourage PO intake and continue to trend; will hold off on additional IVF d/ t edema (3) Atrial fibrillation Code(s): I48.91 - UNSPECIFIED ATRIAL FIBRILLATION Comment: - Rate controlled - Episode of rapid afib 02/18, resolved with cardizem - Continue Eliquis, metoprolol, diltiazem (4) Hypertension Code(s): I10 - ESSENTIAL (PRIMARY) HYPERTENSION Comment: - Slightly hypertensive - Continue metoprolol, cardizem, lisinopril, HCTZ (5) MARZENA (obstructive sleep apnea) Code(s): G47.33 - OBSTRUCTIVE SLEEP APNEA (ADULT) (PEDIATRIC) Comment: - Previously CPAP intolerant - Continue overnight O2 and overnight pulse ox (6) DVT prophylaxis Code(s): Z29.9 - ENCOUNTER FOR PROPHYLACTIC MEASURES, UNSPECIFIED Comment: - Eliquis (7) Full code status Code(s): Z78.9 - OTHER SPECIFIED HEALTH STATUS Comment: Status and Disposition: Inpatient. Dispo per Surgery. Thank you for this consultation. We will continue to follow distantly. Attending: Trina Bal
[2019-02-22] MEDS: Lisinopril TAB* 10 MG PO SCH (08:37)
[2019-02-22] MEDS: Hydrochlorothiazide TAB* 25 MG PO SCH (08:37)
[2019-02-22] MEDS: Metoprolol Tartrate TAB* 25 MG PO SCH (08:37)
[2019-02-22] MEDS: Apixaban* 5 MG TAB PO SCH ×2 (08:38→22:04)
[2019-02-22] MEDS ORDERED: Silver Nitrate/Potassium Nitr* 1 EA STICK TOPICAL ONE (09:00)
--- NOTE | 2019-02-22 10:06 | PN ---
Progress Note - Progress Note Date of Service: 02/22/19 SOAP: Subjective: Passed small amount of flatus No N/V and taking small amounts of fluid OOB and ambulated small amount Pain is adequately controlled Nurses report serous drainage from incision Objective: Temp Pulse Resp BP Pulse Ox 98.9 F 80 16 142/57 96 02/22/19 07:27 02/22/19 07:27 02/22/19 07:49 02/22/19 07:27 02/22/19 07:27 Intake & Output 02/20/19 02/21/19 02/22/19 02/23/19 06:59 06:59 06:59 06:59 Intake Total 2739 890 1553 Output Total 1060 1115 1785 Balance 1679 -225 -232 Weight 344 lb Intake: IV Fluids 2553 843 D5 1/2 NS 823 LR 1600 NS 953 20 IVPB 186 110 Zosyn 186 110 Oral 890 600 Output: RADHA #1 285 15 185 Urine 650 1600 Greer 675 450 Estimated Blood Loss 100 Other: # Bowel Movements 0 PEX: Comfortable-awake and alert Lungs are clear with decreased breath sounds at the bases, no rales or wheezing Abd is distended but soft. Decreased bowel sounds throughout. RLQ packed open with some serous drainage. Several pieter removed, wound opened under sterile conditions--fascial stitches in place without evidence of dehiscence. Wound clean. Packed and re-dressed. RADHA with small amount of thin serosanguinous drainage in bulb. Laboratory Results - last 24 hr 02/22/19 02/22/19 05:15 05:15 WBC 16.1 H RBC 3.81 L Hgb 11.4 L Hct 34 L MCV 88 MCH 30 MCHC 34 RDW 14 Plt Count 241 MPV 6.9 L Neut % (Auto) 80.2 Lymph % (Auto) 10.5 [place] % (Auto) 7.0 Eos % (Auto) 1.9 Baso % (Auto) 0.4 Absolute Neuts (auto) 12.9 H Absolute Lymphs (auto) 1.7 Absolute Monos (auto) 1.1 H Absolute Eos (auto) 0.3 Absolute Basos (auto) 0.1 Absolute Nucleated RBC 0.0 Nucleated RBC % 0.0 Sodium 133 L Potassium 3.3 L Chloride 103 Carbon Dioxide 22 Anion Gap 8 BUN 14 Creatinine 1.30 H Est GFR ( Amer) 68.6 Est GFR (Non-Af Amer) 56.7 BUN/Creatinine Ratio 10.8 Glucose 107 H Calcium 7.9 L Assessment: POD#3 s/po open appendectomy WBC elevated-? source Cr up slightly Ileus Plan: Continue IV abx Hold NSAID's RADHA drain Po as tolerated IS/Increase activity Wound care Will repeat labs in AM and follow.
[2019-02-22] MEDS: Atorvastatin* 20 MG TAB PO SCH (22:04)
[2019-02-23] MEDS: Piperacillin/Tazobac ADVAN(*) 3.375 GM in NS 0.9% 100 ML* 100 ML IVPB SCH ×3 (00:42→17:02)
[2019-02-23] MEDS: Diltiazem TAB* 60 MG PO SCH ×5 (00:42→16:06)
[2019-02-23 05:03] LABS: Hematocrit 33 % (42-52); Mean Corpuscular HGB Conc 34 g/dL (31-36); Mean Corpuscular Hemoglobin 29 pg (27-31); Mean Corpuscular Volume 88 fL (80-94); Mean Platelet Volume 6.5 fL (7.4-10.4); Platelet Count 278 10^3/uL (150-450); Red Blood Count 3.76 10^6 /uL (4.18-5.48); Red Cell Distribution Width 14 % (10-15); White Blood Count 16.3 10^3/uL (3.5-10.8)
[2019-02-23 05:15] LABS: BUN/Creatinine Ratio 12.1 (8-20); Calcium 8.1 mg/dL (8.6-10.3); EGFR African American 85.9 (>60); Potassium 3.3 mmol/L (3.5-5.0)
[2019-02-23 06:37] LABS: ABS Basophils 0.1 10^3/ul (0-0.2); ABS Eosinophils 0.3 10^3/ul (0-0.6); ABS Monocytes 1.1 10^3/ul (0-0.8); ABS Neutrophils 12.9 10^3/ul (1.5-7.7); Eosinophil % 1.6 %; Lymphocyte % 12.1 %
[2019-02-23] MEDS ORDERED: Potassium Chlor TAB* 20 MEQ TAB.ER PO ONE (07:30)
[2019-02-23] MEDS: Metoprolol Tartrate TAB* 25 MG PO SCH (10:15)
[2019-02-23] MEDS: Hydrochlorothiazide TAB* 25 MG PO SCH (10:15)
[2019-02-23] MEDS: Lisinopril TAB* 10 MG PO SCH (10:15)
[2019-02-23] MEDS: Apixaban* 5 MG TAB PO SCH ×2 (10:15→19:21)
--- NOTE | 2019-02-23 13:44 | PN ---
Progress Note - Progress Note Date of Service: 02/23/19 SOAP: Subjective: Feels better today Tolerating some po, passing flatus and had small bowel movement this morning Pain is well controlled Nurses changed outer dressing several times yesterday Objective: Temp Pulse Resp BP Pulse Ox 99.1 F 57 18 137/53 99 02/23/19 11:36 02/23/19 11:36 02/23/19 11:36 02/23/19 11:36 02/23/19 11:36 Intake & Output 02/21/19 02/22/19 02/23/19 02/24/19 06:59 06:59 06:59 06:59 Intake Total 890 1553 1643 Output Total 1115 1785 2960 830 Balance -225 -232 -1317 -830 Weight 344 lb 347 lb 12.8 oz Intake: IV Fluids 843 D5 1/2 NS 823 NS 20 IVPB 110 323 Zosyn 110 323 Oral 324 150 5214 Output: RADHA #1 15 185 130 30 Urine 650 1600 2830 800 Greer 450 Other: # Bowel Movements 0 0 PEX: Comfortable Lungs are clear, decreased breath sounds at the bases Abd is slightly distended. Few bowel sounds present. RADHA with small amount of thin serosanguinous fluid in bulb RLQ open wound is clean-fascia intact, much less clear drainage Ext without edema Laboratory Results - last 24 hr 02/23/19 02/23/19 04:53 04:53 WBC 16.3 H RBC 3.76 L Hgb 11.0 L Hct 33 L MCV 88 MCH 29 MCHC 34 RDW 14 Plt Count 278 MPV 6.5 L Neut % (Auto) 78.9 Lymph % (Auto) 12.1 [place] % (Auto) 7.0 Eos % (Auto) 1.6 Baso % (Auto) 0.4 Absolute Neuts (auto) 12.9 H Absolute Lymphs (auto) 2.0 Absolute Monos (auto) 1.1 H Absolute Eos (auto) 0.3 Absolute Basos (auto) 0.1 Absolute Nucleated RBC 0.0 Immature Gran % 6.0 Neutrophils % 73.0 Band Neutrophils % 1.0 Lymphocytes % 13.0 Monocytes % 7.0 Eosinophils % 1.0 Metamyelocytes % 5.0 H Nucleated RBC % 0.0 Normal RBC Morphology Normal Sodium 134 L Potassium 3.3 L Chloride 103 Carbon Dioxide 25 Anion Gap 6 BUN 13 Creatinine 1.07 Est GFR ( Amer) 85.9 Est GFR (Non-Af Amer) 71.0 BUN/Creatinine Ratio 12.1 Glucose 106 H Calcium 8.1 L Assessment: POD# 4 s/p open appendectomy WBC remains elevated, pt is afebrile, ileus resolving and no fever Open wound-much less serous drainage today-fascia intact, suspect drainage is third space fluid from large open wound. Normal renal function Plan: Regular food IV abx Dressing and packing changed Increase activity RADHA drain Elliquis Follow WBC
[2019-02-23] MEDS: oxyCODONE/Acetamin 5/325 MG* TAB PO PRN (15:40)
[2019-02-23] MEDS: Atorvastatin* 20 MG TAB PO SCH (19:21)
[2019-02-24] MEDS: Piperacillin/Tazobac ADVAN(*) 3.375 GM in NS 0.9% 100 ML* 100 ML IVPB SCH ×3 (00:27→17:20)
[2019-02-24] MEDS: Diltiazem TAB* 60 MG PO SCH ×2 (00:29→05:44)
[2019-02-24] MEDS ORDERED: Potassium Chlor TAB* 20 MEQ TAB.ER PO ONE (08:38)
--- NOTE | 2019-02-24 09:10 | PN ---
Progress Note - Progress Note Date of Service: 02/24/19 SOAP: Subjective: Tolerating po Multiple soft BM's yesterday and flatus Minimal pain Ambulating in halls Nurses report much less wound drainage Objective: Temp Pulse Resp BP Pulse Ox 98.7 F 76 18 142/68 99 02/24/19 07:41 02/24/19 07:41 02/24/19 07:41 02/24/19 07:41 02/24/19 07:41 Intake & Output 02/22/19 02/23/19 02/24/19 02/25/19 06:59 06:59 06:59 06:59 Intake Total 1553 1643 1540 Output Total 1785 2960 2935 Balance -232 1317 -1395 Weight 344 lb 347 lb 12.8 oz 341 lb 9.6 oz Intake: IV Fluids 843 D5 1/2 NS 823 NS 20 IVPB 110 323 Zosyn 110 323 Oral 600 1320 1540 Output: RADHA #1 185 130 160 Urine 1600 2830 2775 Other: Estimated Void Large Date of Last Bowel 02/24/19 Movement # Bowel Movements 0 0 1 Estimated Stool Amount Medium PEX: Comfortable Lung with decreased breath sounds at bases, no rales Abd is soft and less distended. Bowel sounds are present. RLQ wound is clean and granulating, closing in well. No purulence and minimal drainage noted. RADHA with small amount of serous fluid in bulb Assessment: POD# 5 s/p open appy Plan: Wound care IV abx Plan D/C 02/25 D/C drain on discharge Visiting nurses 5 day of oral Augmentin Office follow up
[2019-02-24] MEDS ORDERED: Metoprolol Succinate XL TAB* 25 MG PO ONE (09:38)
[2019-02-24] MEDS: Metoprolol Tartrate TAB* 25 MG PO SCH (09:40)
[2019-02-24] MEDS: Lisinopril TAB* 10 MG PO SCH (09:40)
[2019-02-24] MEDS: Apixaban* 5 MG TAB PO SCH ×2 (09:40→22:01)
[2019-02-24] MEDS: Hydrochlorothiazide TAB* 25 MG PO SCH (09:40)
[2019-02-24] MEDS: oxyCODONE/Acetamin 5/325 MG* TAB PO PRN ×2 (11:49→22:02)
--- NOTE | 2019-02-24 15:10 | PN ---
Subjective Date of Service: 02/24/19 Interval History: Mr. Kendrick is feeling better today. He offers no complaints. Denies CP, SOB, dizziness, headache. Has been up ambulating. Anxious for d/c tomorrow. Nursing expressing concern re HTN. Family History: Unchanged from Admission Social History: Unchanged from Admission Past Medical History: Unchanged from Admission Objective Active Medications: Acetaminophen (Tylenol Tab*) 650 mg PO Q6H PRN FEVER Albuterol (Ventolin Hfa Inhaler*) 2 puff INH Q4H PRN SHORTNESS OF BREATH Apixaban (Eliquis*) 5 mg PO BID CHRISTOS Atorvastatin Calcium (Lipitor*) 20 mg PO 2100 CHRISTOS Hydrochlorothiazide (Hydrodiuril Tab*) 25 mg PO DAILY CHRISTOS Piperacillin Sod/Tazobactam (Sod 3.375 gm/ Sodium Chloride) 100 mls @ 25 mls/ hr IVPB Q8H CHRISTOS Lisinopril (Prinivil Tab*) 40 mg PO DAILY CHRISTOS Metoprolol Succinate (Toprol Xl Tab*) 50 mg PO DAILY CHRISTOS Morphine Sulfate (Morphine 10 Mg/Ml Vial (1 Ml)) 5 mg IV Q6H PRN PAIN Naloxone HCl (Narcan*) 0.08 mg IV PUSH .Q2MIN PRN OVERSEDATION Ondansetron HCl (Zofran Odt Tab*) 4 mg PO Q6H PRN NAUSEA Oxycodone/Acetaminophen (Percocet 5/325 Tab*) 2 tab PO Q4H PRN PAIN Oxycodone/Acetaminophen (Percocet 5/325 Tab*) 1 tab PO Q4H PRN PAIN Prochlorperazine (Compazine Tab*) 5 mg PO Q6H PRN NAUSEA Vital Signs - 8 hr 02/24/19 02/24/19 02/24/19 07:41 08:00 11:45 Temperature 98.7 F 98.1 F Pulse Rate 76 73 Respiratory 18 18 18 Rate Blood Pressure 142/68 159/68 (mmHg) O2 Sat by Pulse 99 99 Oximetry 02/24/19 11:49 Temperature Pulse Rate Respiratory 16 Rate Blood Pressure (mmHg) O2 Sat by Pulse Oximetry Oxygen Devices in Use Now: None Appearance: Middle-aged male laying in bed in NAD Eyes: No Scleral Icterus Ears/Nose/Mouth/Throat: Mucous Membranes Moist Neck: NL Appearance and Movements; NL JVP, Trachea Midline Respiratory: Symmetrical Chest Expansion and Respiratory Effort, Clear to Auscultation Cardiovascular: NL Sounds; No Murmurs; No JVD, - - Irregular rhythm Extremities: - - +1 pitting BLE Neurological: Alert and Oriented x 3, NL Sensation Lines/Tubes/Other Access: Clean, Dry and Intact Peripheral IV Nutrition: Taking PO's Result Diagrams: 02/23/19 04:53 02/23/19 04:53 Assess/Plan/Problems-Billing Assessment: Mr. Kendrick is a 58 yo M with PMH of afib (on AC), HTN, HLD, MARZENA (not tolerant to CPAP); who presented with chills and abd pain, found to have appendicitis with possible perforation. Hospital medicine consulted for comanagement of chronic medical conditions. - Patient Problems (1) Appendicitis Code(s): K37 - UNSPECIFIED APPENDICITIS Comment: - S/p open appendectomy on 02/19/19 - Management per general surgery - Encourage ambulation, IS and cough/deep breathing - Continue morphine, Percocet (2) SANJAY (acute kidney injury) Code(s): N17.9 - ACUTE KIDNEY FAILURE, UNSPECIFIED Comment: - Resolved (3) Atrial fibrillation Code(s): I48.91 - UNSPECIFIED ATRIAL FIBRILLATION Comment: - Rate controlled - Episode of rapid afib 02/18, resolved with cardizem - Continue Eliquis; increase metoprolol dose and change to XL (4) Hypertension Code(s): I10 - ESSENTIAL (PRIMARY) HYPERTENSION Comment: - Slightly hypertensive - Continue metoprolol (dose increased), lisinopril, HCTZ (5) MARZENA (obstructive sleep apnea) Code(s): G47.33 - OBSTRUCTIVE SLEEP APNEA (ADULT) (PEDIATRIC) Comment: - Previously CPAP intolerant - Continue overnight O2 and overnight pulse ox (6) DVT prophylaxis Code(s): Z29.9 - ENCOUNTER FOR PROPHYLACTIC MEASURES, UNSPECIFIED Comment: - Eliquis (7) Full code status Code(s): Z78.9 - OTHER SPECIFIED HEALTH STATUS Comment: Status and Disposition: Inpatient. Dispo per Surgery. Thank you for this consultation. We will continue to follow distantly. Attending: Adamaris Cloud
[2019-02-24] MEDS: Atorvastatin* 20 MG TAB PO SCH (22:01)
[2019-02-25] MEDS: Piperacillin/Tazobac ADVAN(*) 3.375 GM in NS 0.9% 100 ML* 100 ML IVPB SCH ×2 (00:57→09:04)
[2019-02-25 06:26] LABS: BUN/Creatinine Ratio 13.2 (8-20); Calcium 8.1 mg/dL (8.6-10.3); EGFR African American 103.5 (>60); EGFR Non-African American 85.6 (>60); Potassium 3.1 mmol/L (3.5-5.0)
[2019-02-25] MEDS ORDERED: Potassium Chlor TAB* 20 MEQ TAB.ER PO ONE (07:22)
[2019-02-25 07:47] VITALS: BP 168/79
[2019-02-25] MEDS ORDERED: Metoprolol Succinate XL TAB* 50 MG PO SCH (09:00)
[2019-02-25] MEDS: Hydrochlorothiazide TAB* 25 MG PO SCH (09:04)
[2019-02-25] MEDS: Lisinopril TAB* 10 MG PO SCH (09:04)
[2019-02-25] MEDS: Apixaban* 5 MG TAB PO SCH (09:04)
--- NOTE | 2019-02-25 09:22 | PN ---
Progress Note - Progress Note Date of Service: 02/25/19 Note: S: POD #6. Zosyn. Pain managed w/ Percocet (only req'd 2 doses of 2 tabs ea last 24 hr). Manuel diet, though appetite still only fair. No N/V. Having regular BMs. Rec'd po KCl this a.m. from hospitalist. O: Vital Signs - 8 hr 02/25/19 02/25/19 02/25/19 03:32 07:35 08:05 Temperature 98.5 F 98.2 F Pulse Rate 71 72 Respiratory 17 18 18 Rate Blood Pressure 145/66 168/79 (mmHg) O2 Sat by Pulse 96 97 Oximetry Intake and Output Last 24 Hours 02/23/19 02/24/19 02/25/19 02/26/19 06:59 06:59 06:59 06:59 Intake Total 1643 1540 1700 Output Total 2960 2935 1070 Balance -1317 -1395 630 Weight 347 lb 12.8 oz 341 lb 9.6 oz 347 lb 3.2 oz Intake: IV Fluids 120 Zosyn 120 IVPB 323 Zosyn 323 Oral 1320 1540 1580 Output: RADHA #1 130 160 145 Urine 2830 2775 925 Other: Estimated Void Large Date of Last Bowel 02/24/19 02/24/2019 Movement # Bowel Movements 0 1 1 Estimated Stool Amount Medium Medium Gen: appears comfortable, NAD Heart: reg Lungs: clear ant Abd: soft; min tenderness. RADHA serosang. D/C'd. Open wound clean w/ serosang drainage on dsg; packing changed and demonstrated to his . Overall wound measurements: ~ 12 x 2 cm with depth of ~ 6-8 cm. Labs: Laboratory Tests 02/25/19 05:47 Sodium 137 Potassium 3.1 L A: s/p laparotomy, appendectomy (perf'd) w/ open wound, improving P: home today on Augmentin x 5 d; wound care (daily pkg); office f/u 1 wk; medical f/u 2-4 wks. Resume usual home meds.
--- NOTE | 2019-02-25 10:27 | DS ---
CC: Dr. Lm Lees * DISCHARGE SUMMARY: DATE OF ADMISSION: 02/16/19 DATE OF DISCHARGE: 02/25/19 ATTENDING SURGEON: Dr. Joshua Kincaid.* (DICTATED BY JACKLYN FRANCISCO) HOSPITAL COURSE: Please refer to admission history and physical and operative note for details. The patient is a 58-year-old male who was admitted with at least 48 hours of abdominal pain, vomiting and diarrhea. CT scan showed evidence of appendicitis with perforation. The patient had taken his last Eliquis 24 hours earlier, and was also found to be in acute renal failure. He was placed on IV antibiotics and was seen in consultation and has been followed by the hospitalist service. A repeat CT was done on 02/18/19 and because of lack of overall improvement the patient was taken to the operating room on 02/19/19 at which time he underwent laparoscopy converted to laparotomy with appendectomy. Postoperative course has been characterized by gradual improvement in pain and GI function. A RADHA drain had been left in place, which was removed at the morning of discharge. The wound had been loosely approximated at the time of surgery, but most of the pieter were subsequently removed and the wound packed with Kerlix gauze. This was completed again on the morning of discharge and his was instructed in same. We will arrange a follow up for next week in our office with Dr. Kincaid. He will resume all his usual home medications. In addition, he will complete 5 additional days of Augmentin 875 mg b.i.d. A prescription was also sent electronically for Percocet p.r.n. Wound care, activity, and dietary instructions were all reviewed. Patient is discharged to home in stable condition. He was advised to also contact Dr. Lees's office for medical follow up within 2 to 4 weeks. He did require some supplemental potassium during this inpatient stay, but was not felt to require further potassium supplementation upon discharge. JACKLYN FRANCISCO [id number]/[facility] #: [id number] MTDD
== END 2019-02-25 10:28 | disposition home or self-care (01) | DRG 225 ==
LOC: ED 19:52 → SSU 02-16 07:39 → OBSVTOIN 02-16 09:00 → SSU 02-16 10:47 → MEDTELE 02-18 19:35 → SSU 02-19 14:55
PROVIDERS: ADMIT Surgery; ATTEND Surgery
PROC: 0WJG4ZZ Inspection of Peritoneal Cavity, Percutaneous Endoscopic Approach (ICD-10-PCS; 2019-02-19)
PROC: 0DTJ0ZZ Resection of Appendix, Open Approach (ICD-10-PCS; principal; 2019-02-19 10:15)
DX: K35.32 Acute appendicitis with perforation, localized peritonitis, and gangrene, without abscess (principal); N17.9 Acute kidney failure, unspecified; K56.7 Ileus, unspecified; Z68.42 Body mass index [BMI] 45.0-49.9, adult; I10 Essential (primary) hypertension; J30.2 Other seasonal allergic rhinitis; R40.2412 Glasgow coma scale score 13-15, at arrival to emergency department; E66.01 Morbid (severe) obesity due to excess calories; I48.91 Unspecified atrial fibrillation; E78.00 Pure hypercholesterolemia, unspecified; E78.5 Hyperlipidemia, unspecified; G47.33 Obstructive sleep apnea (adult) (pediatric); E87.6 Hypokalemia; S90.911A Unspecified superficial injury of right ankle, initial encounter; Z72.89 Other problems related to lifestyle; Z87.891 Personal history of nicotine dependence; Z88.8 Allergy status to other drugs, medicaments and biological substances; Z53.31 Laparoscopic surgical procedure converted to open procedure; Z98.1 Arthrodesis status; Z91.018 Allergy to other foods
CPT/HCPCS: 36415; 74176; 74177; 76770; 80048; 80053; 81003; 81015; 83605; 83735; 84100; 85025; 85027; 85610; 85730; 87086; 88304; 93005; 99284; A9270-GY; J1170; J1644; J2270; J2405; J2543; J2704; J3010; J3480; J3490; Q9967

== ENCOUNTER 2021-04-18 10:09 | Inpatient (IN) ==
[~2021-04-18 10:09] MED LIST: Buffered Lidocaine 1% SYRIN 1 ml INTRADERM ONE; DiMENhydriNATE IV 50 mg/ml 1 ml VIAL IV PUSH ONE; Lactated Ringers 1000 ml BAG 1,000 ML IV SCH; Naloxone 0.4 mg VIAL 0.4 mg/ml 1 ml VIAL IV PRN; Ondansetron 4 mg VIAL 2 MG/ML 2 ml VIAL IV PRN; fentaNYL 100 mcg/2 ml 50 MCG/ML VIAL IV PRN
[2021-04-18] MEDS ORDERED: DiMENhydriNATE IV 50 mg/ml 1 ml VIAL ONE (10:27)
[2021-04-18] MEDS ORDERED: Heparin 5000 UNITS/ML 1 mL VIAL ONE (10:27)
[2021-04-18] MEDS ORDERED: ceFAZolin 1 GM ADVAN 1 GM ADDV.VIAL IVPB ONE (10:27)
[2021-04-18] MEDS ORDERED: ceFAZolin 2 GM in NS PREMIX 2 GM/100 ML BAG IVPB ONE (10:27)
[2021-04-18] MEDS ORDERED: Rocuronium 50 mg VIAL 10 mg/ml 5 ml VIAL (50 mg) ONE ×2 (10:55→14:27)
[2021-04-18] MEDS ORDERED: Propofol 10 MG/ML 20 ML BTL ONE (10:55)
[2021-04-18] MEDS ORDERED: fentaNYL 250 mcg/5 ml 50 MCG/ML 5 ml VIAL (250 MCG) ONE (10:55)
[2021-04-18] MEDS ORDERED: Lidocaine 2% PF 5 ML VIAL ONE (10:55)
[2021-04-18] MEDS ORDERED: Midazolam 2 mg/2 ml VIAL 1 mg/ml 2 ml VIAL (2 mg) ONE (10:55)
[2021-04-18] MEDS ORDERED: Bupivacaine 0.25% EPI 200,000 30 ML SDV ONE (13:33)
[2021-04-18] MEDS ORDERED: Dexamethasone IV 4 MG/ML VIAL 1 ml VIAL ONE (14:15)
[2021-04-18] MEDS ORDERED: Phenylephrine 40 mcg/mL 10mL (400mcg) SYRINGE ONE (14:15)
[2021-04-18] MEDS ORDERED: EPHEDrine (Pressors) 50 MG/ML VIAL ONE (14:15)
[2021-04-18] MEDS ORDERED: Phenylephrine IV 10 MG/ML 1 ml VIAL ONE (14:43)
[2021-04-18] MEDS: HYDROmorphone 1 MG/1 ML SYRINGE IV PRN ×5 (15:58→16:30)
[2021-04-18] MEDS ORDERED: HYDROmorphone 1 MG/1 ML SYRINGE ONE (15:58)
[2021-04-18] MEDS ORDERED: HYDROcodone/ACET. 7.5/325 LIQ 15 ML UDC PO PRN (16:10)
[2021-04-18] MEDS ORDERED: Ondansetron 4 mg VIAL 2 MG/ML 2 ml VIAL IV PRN (16:10)
[2021-04-18] MEDS ORDERED: HYDROmorphone 0.5 MG/0.5 ML SYRINGE IV SLOW PU PRN (16:12)
[2021-04-18] MEDS ORDERED: HYDROmorphone 1 MG/1 ML SYRINGE IV SLOW PU PRN (16:12)
[2021-04-18] MEDS ORDERED: fentaNYL 100 mcg/2 ml 50 MCG/ML VIAL ONE (16:34)
[2021-04-18] MEDS: Lactated Ringers 1000 ml BAG 1,000 ML IV SCH (17:10)
[2021-04-18] MEDS: Metoprolol Tartrate 5 mg VIAL 5 ml VIAL (1 mg/ml) IV SCH (18:34)
[2021-04-18] MEDS: Famotidine IV 10 MG/ML 2 ml VIAL (20 mg) IV SLOW PU SCH (21:46)
[2021-04-18] MEDS ORDERED: Heparin 5000 UNITS/ML 1 mL VIAL SUBCUT SCH (22:00)
[2021-04-19] MEDS: Lactated Ringers 1000 ml BAG 1,000 ML IV SCH ×2 (00:22→14:30)
[2021-04-19] MEDS: Metoprolol Tartrate 5 mg VIAL 5 ml VIAL (1 mg/ml) IV SCH ×4 (00:33→18:16)
[2021-04-19] MEDS: Famotidine IV 10 MG/ML 2 ml VIAL (20 mg) IV SLOW PU SCH ×2 (09:17→21:32)
[2021-04-19] MEDS: D5W 1/2 NS KCl 20 meq 1000 ml 1,000 ML IV SCH (16:49)
[2021-04-20] MEDS: D5W 1/2 NS KCl 20 meq 1000 ml 1,000 ML IV SCH (01:06)
[2021-04-20] MEDS: Metoprolol Tartrate 5 mg VIAL 5 ml VIAL (1 mg/ml) IV SCH ×2 (01:07→07:23)
[2021-04-20 07:40] VITALS: BP 131/83
[2021-04-20] MEDS: Famotidine IV 10 MG/ML 2 ml VIAL (20 mg) IV SLOW PU SCH (08:14)
[2021-04-21] MEDS ORDERED: Scopolamine PATCH Remove NOTE PATCH OFF SCH (13:00)
== END 2021-04-20 09:05 | disposition home or self-care (01) | DRG 403 ==
LOC: AA 10:09 → SSU 17:13
PROVIDERS: ADMIT Surgery; ATTEND Surgery